=== PATIENT | female | born 1940 | race Caucasian/White ===

== ENCOUNTER → 2016-04-02 | Outpatient (CLI) | payer OTHER, BC ==
[~2016-04-02] MED LIST: ASPCH81X PO; ATEN50TA PO; CALC500C3 PO; CLBPO15 TOP; CLOP1TAB15 PO; DOCU100C31 PO; DRGTP12 TOP; DRGTP75 TD; ESOM20CA PO; FENT100D10 TD; FURO-85 PO; GABA-112 PO; GABA1CAP PO; HYDR2TAB48 PO; ISOS30TA3 PO; LOSA1TAB PO; METO-157 PO; METR0.754 TOP; NAPR1TAB9 PO; NTRGSL/4 UT; OMEP20CA9 PO; ONDA8TAB6 PO; OXYC-57 PO; PANT40TA PO; PROC1TAB5 PO; TAPE50TA5 PO; XLD/500 PO
--- NOTE | 2016-04-02 10:37 | DIAGNOSTIC IMAGING REPORT ---
CT ABD/PELVIS IV AND ORAL CONT CLINICAL HISTORY: Pancreatic carcinoma COMPARISON STUDY: 01/14/2016 TECHNIQUE: Following the IV administration of 119 mL of Optiray-320, CT scan of the abdomen and pelvis was performed from the lung bases to the proximal femurs. Images are reviewed in the axial, sagittal, and coronal planes. IV contrast was administered without complication. CT DOSE: FINDINGS: Lower chest: There is a small left pleural effusion. There are left basilar airspace opacities likely atelectatic. There are coronary artery calcifications. Liver: The contrast-enhanced liver is normal in size, contour, and attenuation. There is no intrahepatic biliary ductal dilatation. The hepatic veins and portal veins are patent. Gallbladder: Cholelithiasis. Spleen: There is borderline splenomegaly (12 cm) there is occlusion of splenic vein. There are perisplenic varices. Pancreas: There is persistent soft tissue encasing the splenic artery and splenic vein. The mass measures approximately 4 cm. The mass appears to arise from the pancreatic body. There is fatty atrophy of the pancreatic head. Adrenal glands: Unremarkable. Kidneys: There is a 12 mm right renal cyst. There are renal calcifications, likely vascular. Bowel: There are no transition zones indicate bowel obstruction. The appendix appears normal. There is no acute diverticulitis. There are postsurgical changes involving the stomach. Peritoneum: There is minimal free pelvic fluid. There is no free air. There is a small fat-containing upper abdominal midline ventral hernia. Vasculature: There is an indwelling IVC filter. There is no evidence of abdominal aortic dilatation. Adenopathy: Upper abdominal mesenteric lymph nodes remain the upper limits of normal in size. Pelvic viscera: There is mild bladder wall thickening. Skeletal structures: There are postsurgical changes present within the spine. There is a grade 2/4 spondylolisthesis of L5 on S1. IMPRESSION: 1. Slight interval decrease in the size of the complex pancreatic body mass which currently measures 4 cm. 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 2. Interval development of a small left pleural effusion 3. No evidence of bowel obstruction. No evidence of free air 4. Cholelithiasis 5. Varices 6. No CT evidence of hepatic metastasis Electronically signed by: Ba Lara M.D. 04/02/2016 10:34 AM
--- NOTE | 2016-04-02 10:37 | DIAGNOSTIC IMAGING REPORT ---
CT OF THE CHEST WITH IV CONTRAST CLINICAL HISTORY: Pancreatic cancer. COMPARISON STUDY: Chest radiograph January 05, 2016. TECHNIQUE: Following IV administration of 119 mL of Optiray-320, helical axial images of the chest were obtained. Images were viewed in the axial, sagittal and coronal planes. IV contrast was administered without complication. CT DOSE: 860.66 mGy.cm FINDINGS: There are median sternotomy wires and findings consistent with bypass grafting. The heart is mildly enlarged. There is extensive coronary artery calcification. There is no pericardial effusion. There is a small hiatal hernia. Post surgical findings involving the stomach are noted. The abdomen and pelvis will be reported separately. A small left pleural effusion is new since CT of January 14, 2016. There is no pneumothorax. A tiny subpleural calcified nodule within left upper lobe is noted. Left lower lobe and lingular opacities favor atelectasis. No suspicious osseous lesions are present. A left subclavian [id number] is in place. There are several subcentimeter thyroid nodules. IMPRESSION: 1. Small left pleural effusion. This pleural effusion is nonspecific. No CT findings to indicate a malignant effusion but attention to this effusion on subsequent studies is recommended. 2. No thoracic lymphadenopathy. 3. No convincing evidence for metastatic disease within the chest. Electronically signed by: Eyal Bautista M.D. 04/02/2016 10:35 AM
== END | disposition home or self-care (01) ==
LOC: C.CTS 09:27
PROVIDERS: ATTEND Nurse Practitioner Family
DX: C25.1 Malignant neoplasm of body of pancreas (principal)

== ENCOUNTER 2016-05-11 09:14 | Emergency (ER) | payer OTHER, BC ==
[~2016-05-11] VITALS: Ht 157.5 cm; Wt 67.0 kg
[~2016-05-11 09:14] MED LIST changes: -CLBPO15 TOP; -DRGTP75 TD; -FENT100D10 TD; -FURO-85 PO; -HYDR2TAB48 PO; -LOSA1TAB PO; -METR0.754 TOP; -NAPR1TAB9 PO; -OMEP20CA9 PO; -OXYC-57 PO; -PROC1TAB5 PO; -XLD/500 PO
[2016-05-11 09:31] VITALS: TEMP 37; Ht 157.5 cm; Wt 67.0 kg
[2016-05-11] MEDS ORDERED: CLBPO15 TOP (09:56)
[2016-05-11] MEDS ORDERED: LOSA1TAB PO (09:56)
[2016-05-11] MEDS ORDERED: METR0.754 TOP (09:56)
[2016-05-11] MEDS ORDERED: FURO-85 PO (09:56)
[2016-05-11] MEDS ORDERED: KETOROLAC TROMETHAMINE 30 MG/ML VIAL IV STA (10:01)
[2016-05-11] MEDS ORDERED: ONDANSETRON INJ 2 MG/ML 2 ML VIAL IV STA (10:01)
[2016-05-11] MEDS ORDERED: SODIUM CHLORIDE 0.9% 1000ML 500 ML IV STA (10:01)
[2016-05-11] MEDS ORDERED: OPTIRAY 320 IV PRN (10:15)
--- NOTE | 2016-05-11 10:23 | EMERGENCY ROOM VISIT NOTE ---
History Report prepared by Jim: Robert Sow Under the Supervision of: Dr. Annalisa Sifuentes M.D. First contact with patient: 09:57 Chief Complaint: ABDOMINAL PAIN Stated Complaint: ABDOMINAL PAIN Nursing Triage Summary: pt here via als from home with upper abd pains. pt currently undergoing chemo for pancreatic cancer. last chemo was saturday. pt also had one emesis in route. pt states since arrival abd pain has been lessening. History of Present Illness The patient is a 75 year old female who presents to the Emergency Room via ALS with complaints of severe but resolved abdominal pain starting this morning. She also complains of nausea and vomiting. She was given nausea medication in route to the Emergency Room with relief. For the past 3 days, she has been having constipation. Her last normal bowel movement was 3 days ago. She had a small amount of bowel movement a few days ago. She reports her symptoms have now improved. She has a history of pancreatic cancer. Her last chemotherapy session was 3 days ago. She also has a history of triple bypass surgery. The patient denies chest pain, shortness of breath, or any other complaints. Source of History: patient Onset: this morning Position: abdomen Symptom Intensity: severe Timing: resolved Associated Symptoms: No SOB, No chest pain Review of Systems See HPI for pertinent positives & negatives. A total of 10 systems reviewed and were otherwise negative. Past Medical & Surgical Medical Problems: (1) Angina pectoris (2) Hypertension (3) Pancreatic cancer Family History No pertinent family history Social History Smoking Status: Never Smoker Housing Status: lives with family Current/Historical Medications Scheduled Aspirin (Aspirin Chewable), 81 MG PO QAM Atenolol (Tenormin), 1 TAB PO QAM Clobetasol Propionate (Clobetasol Propionate), 1 APPLN TOP BID Clopidogrel (Plavix), 75 MG PO DAILY Docusate Sodium (Docusate Sodium), 1 CAP PO BID Esomeprazole Magnesium (Nexium), 20 MG PO QAM Fentanyl (Fentanyl), 1 PATCH TOP Q72H Furosemide (Lasix), 1 TAB PO DIRECTED Gabapentin (Neurontin), 100 MG PO QAM Gabapentin (Neurontin), 200 MG PO QPM Isosorbide Mononitrate Ext Rel (Imdur Ext Rel), 60 MG PO QAM Losartan Potassium (Cozaar), 1 TAB PO HS Metoclopramide (Reglan), 10 MG PO QID Metronidazole (Topical) (Metrocream), 1 APPLN TOP DAILY Nitroglycerin (Nitrostat), 0.4 MG UT PRN Pantoprazole (Protonix), 40 MG PO QAM Scheduled PRN Calcium Carbonate (Tums), 1-2 TAB PO DAILY PRN for PRN Hydromorphone Hcl (Dilaudid), 1-3 TAB PO TID PRN for Pain Ondansetron Hcl (Zofran), 8 MG PO Q8 PRN for Nausea Oxycodone/Acetaminophen 5MG/325MG (Percocet 5MG/325MG), 1-2 TABLETS PO Q4H PRN for Pain Allergies Coded Allergies: Adhesives (Verified Allergy, Unknown, RASH, 05/11/16) Metaxalone (Verified Allergy, Unknown, RASH, 05/11/16) Oxycodone (Verified Allergy, Unknown, RASH, 05/11/16) Tramadol (Verified Allergy, Unknown, RASH, 05/11/16) Morphine (Verified Adverse Reaction, Intermediate, DIFFICULTY URINATING, SEVERE SWELLING, 05/11/16) Physical Exam Vital Signs Date Time Temp Pulse Resp B/P Pulse Ox O2 Delivery O2 Flow Rate FiO2 05/11/16 14:07 63 14 133/56 98 05/11/16 13:30 63 14 133/56 98 Room Air 05/11/16 10:30 56 16 134/53 99 Room Air 05/11/16 09:31 37.0 57 16 152/75 100 Room Air 05/11/16 09:22 63 Physical Exam CONSTITUTIONAL: Mild distress HEENT: No icterus, moist mucous membranes NECK: No meningismus, trachea is midline. CARDIOVASCULAR: Regular rate, normal perfusion RESPIRATORY: Unlabored breathing. Clear to auscultation. GASTROINTESTINAL: Mild epigastric tenderness. GENITOURINARY: No flank tenderness MUSCULOSKELETAL: Full range of motion NEUROLOGIC: No acute gross focal deficits. PSYCHIATRIC: Normal affect SKIN: Normal for ethnicity. Medical Decision & Procedures ER Provider Diagnostic Interpretation: CT results as stated below per my review and radiologist interpretation. CT ABD/PELVIS IV AND ORAL CONT CLINICAL HISTORY: Abdominal pain. Pancreatic carcinoma. COMPARISON STUDY: April 02, 2016 TECHNIQUE: Following the IV administration of 119 mL of Optiray-320, CT scan of the abdomen and pelvis was performed from the lung bases to the proximal femurs. Images are reviewed in the axial, sagittal, and coronal planes. IV contrast was administered without complication. CT DOSE: 386.30 mGy.cm FINDINGS: Lower chest: There are coronary artery calcifications. There is interval decrease in the size of a left pleural effusion. There is a small hiatal hernia. Liver: The contrast-enhanced liver is normal in size, contour, and attenuation. There is no intrahepatic biliary ductal dilatation. The hepatic veins and portal veins are patent. Gallbladder: There are several gallstones. Spleen: Normal in size and attenuation. Pancreas: There is an ill-defined mass involving the pancreatic body measuring 4.5 cm. There is occlusion of the splenic vein. There are perigastric collaterals. Adrenal glands: Unremarkable. Kidneys: There are renal calcifications, likely vascular. There is a 12 mm right renal cyst. Bowel: There are no transition zones indicate bowel obstruction. The appendix appears normal area there is no acute diverticulitis. There is borderline sigmoid wall thickening. Peritoneum: There is no intraperitoneal free air or abdominal ascites. Vasculature: There is residual a IVC filter present. Adenopathy: None. Pelvic viscera: The bladder, and pelvic viscera are unremarkable. Skeletal structures: Postsurgical changes are present within the lumbar spine IMPRESSION: 1. Persistent complex pancreatic body mass, similar in size the preceding study with celiac artery, and splenic artery encasement. There is encasement and occlusion of splenic vein with secondary collateral vessels and varices. 2. No evidence of bowel obstruction. No evidence of free air 3. Interval decrease in the size of left pleural effusion 4. Small hiatal hernia 5. Borderline sigmoid colon wall thickening 6. Normal appendix Electronically signed by: Ba Lara M.D. 05/11/2016 1:08 PM Dictated Date/Time: 05/11/2016 1:00 PM Laboratory Results 05/11/16 10:20 Red Blood Count 3.38, Mean Corpuscular Volume 87.9, Mean Corpuscular Hemoglobin 28.1, Mean Corpuscular Hemoglobin Concent 32.0, Mean Platelet Volume 10.8, Neutrophils (%) (Auto) 91.3, Lymphocytes (%) (Auto) 6.7, Monocytes (%) (Auto) 0.2, Eosinophils (%) (Auto) 1.6, Basophils (%) (Auto) 0.0, Neutrophils # (Auto) 8.42, Lymphocytes # (Auto) 0.62, Monocytes # (Auto) 0.02, Eosinophils # (Auto) 0.15, Basophils # (Auto) 0.00 05/11/16 10:20 Test 05/11/16 10:20 White Blood Count 9.23 K/uL (4.8-10.8) Red Blood Count 3.38 M/uL (4.2-5.4) Hemoglobin 9.5 g/dL (12.0-16.0) Hematocrit 29.7 % (37-47) Mean Corpuscular Volume 87.9 fL (80-100) Mean Corpuscular Hemoglobin 28.1 pg (25-34) Mean Corpuscular Hemoglobin Concent 32.0 g/dl (32-36) Platelet Count 78 K/uL (130-400) Mean Platelet Volume 10.8 fL (7.4-10.4) Neutrophils (%) (Auto) 91.3 % Lymphocytes (%) (Auto) 6.7 % Monocytes (%) (Auto) 0.2 % Eosinophils (%) (Auto) 1.6 % Basophils (%) (Auto) 0.0 % Neutrophils # (Auto) 8.42 K/uL (1.4-6.5) Lymphocytes # (Auto) 0.62 K/uL (1.2-3.4) Monocytes # (Auto) 0.02 K/uL (0.11-0.59) Eosinophils # (Auto) 0.15 K/uL (0-0.5) Basophils # (Auto) 0.00 K/uL (0-0.2) RDW Standard Deviation 50.7 fL (36.4-46.3) RDW Coefficient of Variation 15.8 % (11.5-14.5) Immature Granulocyte % (Auto) 0.2 % Immature Granulocyte # (Auto) 0.02 K/uL (0.00-0.02) Hyposegmented Neutrophils 2+ Toxic Granulation 1+ Platelet Estimate DECREASED Anion Gap 8.0 mmol/L (3-11) Est Creatinine Clear Calc Drug Dose 51.8 ml/min Estimated GFR () 79.4 Estimated GFR (Non- 68.5 BUN/Creatinine Ratio 30.0 (10-20) Calcium Level 8.1 mg/dl (8.5-10.1) Total Bilirubin 0.3 mg/dl (0.2-1) Direct Bilirubin 0.1 mg/dl (0-0.2) Aspartate Amino Transf (AST/SGOT) 46 U/L (15-37) Alanine Aminotransferase (ALT/SGPT) 43 U/L (12-78) Alkaline Phosphatase 66 U/L (45-117) Troponin I < 0.015 ng/ml (0-0.045) Total Protein 6.1 gm/dl (6.4-8.2) Albumin 3.1 gm/dl (3.4-5.0) Lipase 473 U/L (73-393) Labs reviewed by ED physician. Medications Administered Medications (Trade) Dose Ordered Sig/Serina Route Start Time Stop Time Status Last Admin Dose Admin Sodium Chloride (Nss 1000ml) 500 ml @ 0 mls/hr Q0M STAT IV 05/11/16 10:01 05/11/16 10:04 DC 05/11/16 10:17 0 MLS/HR Ondansetron HCl (Zofran Inj) 4 mg NOW STAT IV 05/11/16 10:01 05/11/16 10:04 DC 05/11/16 10:17 4 MG Ketorolac Tromethamine (Toradol Inj) 15 mg NOW STAT IV 05/11/16 10:01 05/11/16 10:04 DC 05/11/16 10:17 15 MG Heparin Sodium (Porcine) (Heparin 100 Unit/ml 5ml Flush) 5 ml STK-MED ONCE .ROUTE 05/11/16 14:00 05/11/16 14:03 DC 05/11/16 14:06 5 ML ECG Indication: abdominal pain Rate (beats per minute): 64 Rhythm: normal sinus Findings: nonspecific-ST abn, no ectopy ED Course 0957: Past medical records reviewed. The patient was evaluated in room B05. A complete history and physical examination was performed. 1001: Toradol Inj 15 mg IV, Zofran Inj 4 mg IV, Sodium Chloride 500 ml @ 0 mls/ hr Wide Open IV 1350: Upon reexamination the patient is resting comfortably. I discussed results and treatment plan with the patient. She verbalizes agreement and understanding. The patient is ready for discharge. 1400: Heparin Sodium (Porcine) 5 ml IV Medical Decision Differential diagnosis includes but is not limited to complications of pancreatic cancer. 75-year-old with known pancreatic cancer on chemotherapy presents to emergency room for moderate epigastric discomfort and nausea prior to arrival although now resolved. She states she receives her care from the [facility] and is already scheduled for a repeat CT scan to assess tumor size in several days. We discussed the pros and cons of ED evaluation and patient request a CT scan here today which subsequently showed pancreatic tumor similar in size to previous. She appeared well at the time of discharge and had no further questions and understands to follow-up with her oncologist. She notes she already has medication for nausea and her fentanyl patch is not adequately relieving her pain at times. I therefore wrote her Dilaudid PRN in the context of a Percocet allergy: Brock. Impression Primary Impression: Pancreatic cancer Scribe Attestation The scribe's documentation has been prepared under my direction and personally reviewed by me in its entirety. I confirm that the note above accurately reflects all work, treatment, procedures, and medical decision making performed by me. Departure Information Dispostion Home / Self-Care Prescriptions Hydromorphone Hcl (DILAUDID) 2 Mg Tab 1-3 TAB PO TID Y for Pain, #24 TAB Prov: Annalisa Sifuentes MD 05/11/16 Oxycodone/Acetaminophen 5MG/325MG (PERCOCET 5MG/325MG) Tab 1-2 TABLETS PO Q4H Y for Pain, #20 TAB Prov: Annalisa Sifuentes MD 05/11/16 Referrals RV. Matute MD (PCP) Forms HOME CARE DOCUMENTATION FORM, IMPORTANT VISIT INFORMATION Patient Instructions My [facility]
[2016-05-11 10:34] LABS: HEMATOCRIT 29.7 % (37-47); MEAN CELL VOLUME 87.9 fL (80-100); MEAN CORPUSCULAR HEMOGLOBIN 28.1 pg (25-34); RED BLOOD COUNT 3.38 M/uL (4.2-5.4); WHITE BLOOD COUNT 9.23 K/uL (4.8-10.8)
[2016-05-11 10:49] LABS: ALT/SGPT 43 U/L (12-78); AST/SGOT 46 U/L (15-37); BLOOD UREA NITROGEN 25 mg/dl (7-18); CALCIUM 8.1 mg/dl (8.5-10.1); CARBON DIOXIDE 24 mmol/L (21-32); CHLORIDE 110 mmol/L (98-107); CREATININE 0.83 mg/dl (0.60-1.20); GLUCOSE 110 mg/dl (70-99); SODIUM 142 mmol/L (136-145)
[2016-05-11 10:54] LABS: ALKALINE PHOSPHATASE 66 U/L (45-117)
[2016-05-11 11:01] LABS: MEAN PLATELET VOLUME 10.8 fL (7.4-10.4); PLATELET COUNT 78 K/uL (130-400)
[2016-05-11 11:02] LABS: COMPLETE YES; EOS % 1.6 %; HYPOSEGMENTED POLYS 2+; IG% 0.2 %; LYMPH % 6.7 %; LYMPH ABS # 0.62 K/uL (1.2-3.4); MONO % 0.2 %; NEUT % 91.3 %; PLT ESTIMATE DECREASED; TOXIC GRANULATION 1+
--- NOTE | 2016-05-11 13:09 | DIAGNOSTIC IMAGING REPORT ---
CT ABD/PELVIS IV AND ORAL CONT CLINICAL HISTORY: Abdominal pain. Pancreatic carcinoma. COMPARISON STUDY: April 02, 2016 TECHNIQUE: Following the IV administration of 119 mL of Optiray-320, CT scan of the abdomen and pelvis was performed from the lung bases to the proximal femurs. Images are reviewed in the axial, sagittal, and coronal planes. IV contrast was administered without complication. CT DOSE: 386.30 mGy.cm FINDINGS: Lower chest: There are coronary artery calcifications. There is interval decrease in the size of a left pleural effusion. There is a small hiatal hernia. Liver: The contrast-enhanced liver is normal in size, contour, and attenuation. There is no intrahepatic biliary ductal dilatation. The hepatic veins and portal veins are patent. Gallbladder: There are several gallstones. Spleen: Normal in size and attenuation. Pancreas: There is an ill-defined mass involving the pancreatic body measuring 4.5 cm. There is occlusion of the splenic vein. There are perigastric collaterals. Adrenal glands: Unremarkable. Kidneys: There are renal calcifications, likely vascular. There is a 12 mm right renal cyst. Bowel: There are no transition zones indicate bowel obstruction. The appendix appears normal area there is no acute diverticulitis. There is borderline sigmoid wall thickening. Peritoneum: There is no intraperitoneal free air or abdominal ascites. Vasculature: There is residual a IVC filter present. Adenopathy: None. Pelvic viscera: The bladder, and pelvic viscera are unremarkable. Skeletal structures: Postsurgical changes are present within the lumbar spine IMPRESSION: 1. Persistent complex pancreatic body mass, similar in size the preceding study with celiac artery, and splenic artery encasement. There is encasement and occlusion of splenic vein with secondary collateral vessels and varices. 2. No evidence of bowel obstruction. No evidence of free air 3. Interval decrease in the size of left pleural effusion 4. Small hiatal hernia 5. Borderline sigmoid colon wall thickening 6. Normal appendix Electronically signed by: Ba Lara M.D. 05/11/2016 1:08 PM Dictated Date/Time: 05/11/2016 1:00 PM
[2016-05-11] MEDS ORDERED: OXYC-57 PO (13:53)
[2016-05-11] MEDS ORDERED: HYDR2TAB48 PO (13:53)
[2016-05-11 14:07] VITALS: BP 133/56; PULSE 63; O2SAT 98
[2016-08-24] MEDS ORDERED: NAPR1TAB9 PO (10:16)
[2016-08-24] MEDS ORDERED: PROC1TAB5 PO (10:16)
[2016-08-24] MEDS ORDERED: DRGTP75 TD (10:16)
[2016-09-17] MEDS ORDERED: HYDR2TAB48 PO (13:44)
[2016-09-24] MEDS ORDERED: FENT100D10 TD (14:20)
[2016-10-09] MEDS ORDERED: XLD/500 PO (14:00)
[2016-11-30] MEDS ORDERED: HYDR2TAB48 PO (08:55)
== END 2016-05-11 14:08 | disposition home or self-care (01) ==
LOC: EDBD 09:14 → C.EDB 09:15
DX: C25.9 Malignant neoplasm of pancreas, unspecified (principal); I10 Essential (primary) hypertension; Z95.1 Presence of aortocoronary bypass graft; Z79.82 Long term (current) use of aspirin; Z79.899 Other long term (current) drug therapy; Z88.5 Allergy status to narcotic agent; Z88.8 Allergy status to other drugs, medicaments and biological substances; Z91.09 Other allergy status, other than to drugs and biological substances

== ENCOUNTER → 2016-07-02 | Outpatient (CLI) | payer OTHER, BC ==
[~2016-07-02] MED LIST changes: +CLBPO15 TOP; +DRGTP75 TD; +FENT100D10 TD; +FURO-85 PO; +HYDR2TAB48 PO; +LOSA1TAB PO; +METR0.754 TOP; +NAPR1TAB9 PO; +OMEP20CA9 PO; +OPTIRAY 320 IV PRN; +OXYC-57 PO; +PROC1TAB5 PO; -TAPE50TA5 PO; +XLD/500 PO
--- NOTE | 2016-07-02 15:28 | DIAGNOSTIC IMAGING REPORT ---
ABDOMEN AND PELVIS CT WITH IV AND ORAL CONTRAST CT DOSE: HISTORY: Pancreatic carcinoma neoplasm TECHNIQUE: Multiaxial CT images of the abdomen and pelvis were performed following the use of intravenous and oral contrast. COMPARISON STUDY: 05/11/2016 FINDINGS: Mild decrease in volume of a pancreatic mass. Encasement of the celiac axis as well as several surrounding nodes on a regional bases persist. Overall extent, however appears at least slightly diminished. Lung bases remain clear. There is no basilar pulmonary nodularity. Liver remains uniform in overall enhancement characteristics. Hepatic and portal venous structures remain patent. Several small gallstones remain within the gallbladder lumen. Splenic vein remains occluded. Kidneys remain negative for hydronephrosis. Bowel pattern remains nonobstructive. Several small mesenteric nodes are present and remains unchanged from the prior study. Structures the pelvis appear unremarkable. Bladder remains midline. There is no pelvic or inguinal adenopathy of significance. IMPRESSION: Stable to perhaps slightly improved exam compared to the prior study. 2. The encased seen and or infiltrative poorly defined pancreatic mass is slightly diminished in prominence. 3. All remaining components of the study are stable with no new or interval process. Electronically signed by: Dewayne Brink M.D. 07/02/2016 3:26 PM Dictated Date/Time: 07/02/2016 3:17 PM
--- NOTE | 2016-07-02 15:56 | DIAGNOSTIC IMAGING REPORT ---
CHEST CT WITH CONTRAST CT DOSE: 805.97 mGycm HISTORY: Pancreatic cancer. Assess for metastatic disease. TECHNIQUE: Multiaxial CT images of the chest were performed following the intravenous administration of contrast. COMPARISON: Chest CT 04/02/2016. FINDINGS: The central airways are patent. No pneumothorax. No suspicious pulmonary nodules to suggest metastatic disease. Linear densities within the right middle lobe and lingula remain unchanged. Trace left pleural effusion has improved. No suspicious lytic or blastic osseous lesions. Poststernotomy changes. Cervical spinal fusion hardware. Subcentimeter thyroid nodules. Left Port-A-Cath terminates in the distal SVC. Small hiatus hernia, unchanged. Mild thickening of the distal esophagus. Mild asymmetric enlargement and slightly edematous appearance to the left breast persist. No mediastinal or hilar lymphadenopathy. Ill-defined pancreatic mass is better appreciated on the same day abdomen and pelvis CT. IMPRESSION: 1. Interval improvement in the trace left pleural effusion. 2. No evidence for metastatic disease within the chest. 3. Mild asymmetric enlargement and mild edematous change within the left breast. This remains unchanged. Correlation with mammogram should be considered for further evaluation. This could be due to delayed venous drainage within the left chest due to the indwelling left-sided Port-A-Cath. 4. Ill-defined pancreatic mass is better appreciated on the same day abdomen and pelvis CT. Electronically signed by: Rudy Au M.D. 07/02/2016 3:55 PM Dictated Date/Time: 07/02/2016 3:44 PM
== END | disposition home or self-care (01) ==
LOC: C.CTS 14:31
PROVIDERS: ATTEND Nurse Practitioner Family
DX: C25.1 Malignant neoplasm of body of pancreas (principal)

== ENCOUNTER → 2016-10-05 | Outpatient (CLI) | payer OTHER, BC ==
[~2016-10-05] MED LIST changes: -ASPCH81X PO; -DRGTP12 TOP; -DRGTP75 TD; -OPTIRAY 320 IV PRN; -OXYC-57 PO; -PANT40TA PO
--- NOTE | 2016-10-05 12:25 | MAMMOGRAPHY REPORT ---
UNILATERAL LEFT DIGITAL DIAGNOSTIC MAMMOGRAM AND TARGETED LEFT ULTRASOUND: 10/05/2016 CLINICAL HISTORY: Mild trabecular thickening noted within the left breast during diagnostic mammogram , for which ultrasound was recommended. The patient is currently undergoing chemoradiation for pancre atic cancer. She denies any erythema of the left breast, palpable lump, or other complaints. TECHNIQUE: Left CC and MLO views were obtained. COMPARISON: Comparison is made to exam dated: 08/20/2016 mammogram - [facility]. BREAST COMPOSITION: There are scattered areas of fibroglandular density in the left breast. FINDINGS: Repeat mammograms were performed as the last mammograms were performed on 08/20/2016. The p reviously seen diffuse trabecular thickening of the left breast is slightly decreased compared to the 08/20/2016 exam. No left breast skin thickening is evident. The remainder of the left breast is sta ble mammographically, without suspicious masses, calcifications, or areas of architectural distortion noted. Targeted ultrasound was performed of the left breast including all 4 quadrants. No suspicious masses or other suspicious sonographic abnormalities are evident. No obvious skin thickening is evident. On clinical exam, there is no erythema or peau d'orange of the left breast. IMPRESSION: ACR BI-RADS CATEGORY 2: BENIGN, TARGETED ULTRASOUND ACR BI-RADS CATEGORY 2: BENIGN Slight interval decrease in diffuse left breast trabecular thickening compared to the 08/20/2016 exam. No skin thickening or other suspicious sonographic abnormality is noted within the left breast on u ltrasound. The mild trabecular edema is likely related to altered venous drainage from her indwellin g port catheter. Recommend clinical follow-up. There is no mammographic or targeted sonographic evidence of malignancy. Return to annual mammogram s creening schedule is recommended. The patient has been verbally notified of the results. Approximately 10% of breast cancers are not detected with mammography. A negative mammographic report should not delay biopsy if a clinically suggestive mass is present. Arleen Velásquez M.D. /:10/05/2016 09:05:15 Manager Supply Chain: Oxana ALMONTE(Mendy)(M), [facility] letter sent: Normal 1/2 BI-RADS Code: ACR BI-RADS Category 2: Benign Ultrasound BI-RADS: ACR BI-RADS Category 2: Benign
== END | disposition home or self-care (01) ==
LOC: C.MAMM 08:14
PROVIDERS: ATTEND Nurse Practitioner Family
DX: R92.8 Other abnormal and inconclusive findings on diagnostic imaging of breast (principal); N64.89 Other specified disorders of breast; C25.1 Malignant neoplasm of body of pancreas

== ENCOUNTER → 2016-11-19 | Outpatient (CLI) | payer OTHER, BC ==
[~2016-11-19] MED LIST changes: -DOCU100C31 PO; +OPTIRAY 320 IV PRN
--- NOTE | 2016-11-19 10:46 | DIAGNOSTIC IMAGING REPORT ---
ABD/PELVIS IV AND ORAL CONT CLINICAL HISTORY: 76 years-old Female presenting with PANCREATIC CA. TECHNIQUE: Multidetector CT of the abdomen and pelvis was performed after the administration of oral and intravenous contrast. IV contrast: 118 mL of Optiray 320. A dose lowering technique was used consistent with the principles of ALARA (as low as reasonably achievable). COMPARISON: 07/02/2016. CT DOSE (mGy.cm): The estimated cumulative dose is 453.91 inclusive of the chest CT. FINDINGS: Cardiac Cath Lab Manager topogram: Median sternotomy wires and epigastric surgical clips noted. Lung bases: Minimal dependent groundglass opacities at the left lung base, likely atelectasis. Normal heart size. Aortic valve and coronary artery calcification. The tip of the left subclavian Mediport terminates in the superior cavoatrial junction. No pericardial or pleural effusion. Liver: Normal morphology. No liver lesion. Patent hepatic vasculature. Biliary: Mild intrahepatic and extrahepatic biliary ductal dilatation is similar to prior. Mild gallbladder distention with gallstones noted at the gallbladder neck, similar to prior and likely physiologic. Pancreas: Infiltrative pancreatic mass centered at the pancreatic neck and body encases the proximal splenic vessels, centrally at axis, and portal venous confluence. Resultant severe narrowing of the portal venous confluence may be slightly more severe than on prior exam. Infiltrative soft tissue also approaches the posterior aspect of the stomach. Overall size of the mass is greater than on prior exam. Interval development of a gas and fluid containing collection in the lesser sac that is inseparable from the superior margin of the pancreatic mass and gastric wall. No oral contrast is noted within this collection. This collection measures 2.4 x 1.3 cm (series 6 image 93). Spleen: Top normal in size. The splenic vein is occluded at the level of the pancreatic mass. Prominent perisplenic short gastric collateral vessels.. Adrenal glands: The left adrenal gland is abutted by the infiltrative pancreatic mass. Right adrenal gland normal. Kidneys and ureters: Nonobstructing right renal calculi measuring up to 2 to 3 mm. Additional renal vascular calcification. No hydronephrosis. Few small hypodensities in the kidneys to small to characterize but likely cysts. Distal ureters poorly visualized. Proximal ureters normal. Bladder: Incompletely evaluated secondary to underdistention. However, apparent bladder wall thickening along the bladder dome and right aspect anteriorly as on prior exam. Pelvic organs: Uterus and ovaries normal. Bowel: Ill-defined posterior wall of the stomach. The duodenum does not appear to be directly invaded by the pancreatic mass. No bowel obstruction. No extraluminal oral contrast noted. Peritoneal cavity: Trace free fluid in the pelvis. Vasculature: Atherosclerosis of the normal caliber abdominal aorta. IVC patent. An IVC filter terminates above the level of the renal veins. Right pelvic varices noted. Left gonadal vein patent and not significantly dilated. Lymph nodes: No gross lymphadenopathy, although given the infiltrative nature of the pancreatic mass, regional lymph nodes may not be well delineated. Abdominal wall: Postsurgical changes of the midline abdominal wall. No focal fluid collection. Musculoskeletal: Degenerative changes of the spine. Laminectomy defects at L4-5. Degenerative changes of the sacroiliac joints, right greater than left. IMPRESSION: 1. Apparent interval increase in extent of the infiltrative pancreatic mass at the neck body junction. Greater resultant stenosis of the portal venous confluence. 2. Interval development of a gas and fluid collection along the posterior aspect of the stomach, which is inseparable from the superior margin of the mass. This does not contain oral contrast, however, the presence of gas is suspicious for fistulous connection with the stomach. Endoscopy could be considered as clinically warranted. 3. 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 4. Although the bladder is incompletely distended, apparent irregular wall thickening raises concern for a neoplastic process. Consideration for urologic consult and possible cystoscopy. 5. Nonobstructing right renal calculi. Electronically signed by: Silvestre Apodaca M.D. 11/19/2016 10:45 AM Dictated Date/Time: 11/19/2016 10:28 AM
--- NOTE | 2016-11-19 10:54 | DIAGNOSTIC IMAGING REPORT ---
(CHEST) THORAX WITH HISTORY: 76 years-old Female history of pancreatic cancer with therapy. This is a follow-up exam. COMPARISON: CT chest 07/29/2016 TECHNIQUE: Multiple axial CT images of the chest were obtained following the intravenous administration of 118 mL Optiray 320. A dose lowering technique was used consistent with the principals of NAHEED. FINDINGS: 6 mm low attenuating right thyroid nodule is seen, nonspecific. No pathologic adenopathy about the chest is identified. Left pectoral Dabdzv-f-Gepe catheter is again seen with distal tip right atrium. There is improved edema about the left breast. 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 Aortic annulus calcifications are noted. Moderate atherosclerotic plaquing involves the thoracic aorta. There is plaquing at the origin of the celiac trunk which appears to cause at least 50% stenosis. The opacified pulmonary arterial tree appears to be within normal limits. There is no pneumothorax, pleural effusion or focal airspace consolidation. No suspicious pulmonary masses or nodules are identified to suggest metastatic disease. There is minimal dependent subsegmental bibasilar atelectasis. Minimal subsegmental pleural parenchymal scarring involves the inferior segment lingula. The central airways are patent. Layering gallstones are seen within the gallbladder lumen. A well-defined mass of the pancreas is better evaluated on comparison CT abdomen of same day. Infrarenal IVC filter is noted. Partially imaged fusion hardware of the cervical spine is noted. There are postsurgical changes of the right humeral head. There are degenerative changes of the bilateral shoulders. No suspicious lytic or blastic bony lesions are identified. IMPRESSION: 1. No acute intrathoracic abnormality. No evidence of metastatic disease within the chest. 2. No pathologic adenopathy. 3. Decreased amount of soft tissue edema involves the left breast. 4. Ill-defined pancreatic mass is better evaluated on comparison CT of the abdomen and pelvis of same day. 5. Cholelithiasis. The above report was generated using voice recognition software. It may contain grammatical, syntax or spelling errors. Electronically signed by: Mendoza Brumfield M.D. 11/19/2016 10:53 AM Dictated Date/Time: 11/19/2016 10:41 AM
== END | disposition home or self-care (01) ==
LOC: C.CTS 07:52
PROVIDERS: ATTEND Nurse Practitioner Family
DX: C25.1 Malignant neoplasm of body of pancreas (principal)

== ENCOUNTER 2016-11-26 00:14 | Inpatient (IN) | payer OTHER, BC ==
[~2016-11-26] VITALS: Ht 152.4 cm; Wt 58.2 kg
[2016-11-26] VITALS (13 sets, daily range): BP systolic 91–181; BP diastolic 49–78; PULSE 51–73; TEMP 36.4–37.6; O2SAT 92–96; Ht 152.4 cm; Wt 58.2 kg
[~2016-11-26 00:14] MED LIST changes: -OMEP20CA9 PO; -OPTIRAY 320 IV PRN
[2016-11-26] MEDS ORDERED: OMEP20CA9 PO (00:45)
--- NOTE | 2016-11-26 00:53 | EMERGENCY ROOM VISIT NOTE ---
History Report prepared by Jim: Eulogio Oliver Under the Supervision of: Dr. Andria Burk D.O. First contact with patient: 00:25 Chief Complaint: WEAKNESS Stated Complaint: FALL Nursing Triage Summary: 3 day history of weakness, resulting in ground level fall this date. History of Present Illness The patient is a 76 year old female who presents to the Emergency Room with complaints of weakness that began 2 days ago. At this time, the patient noticed that she was having difficulty walking and standing up. She was "wobbly" with walking and experienced a fall. She fell on a carpeted surface onto her face and called EMS. She was also experiencing extremity "jerking" or spasms intermittently since this time as well where she would frequently drop objects. This has never happened to her before. She has a current medical history of pancreatic cancer. Her last radiation and chemotherapy procedure was 1 week to hold his mouth ago. She also had an open heart surgery a couple of month ago. She denies any other symptoms at this time. Source of History: patient Onset: 2 days ago Position: other (global) Symptom Intensity: moderate Quality: other (Weakness) Timing: constant Associated Symptoms: No LOC Note: She is having intermittent muscle spasms in her extremities. She denies any other symptoms at this time. Review of Systems See HPI for pertinent positives & negatives. A total of 10 systems reviewed and were otherwise negative. Past Medical & Surgical Medical Problems: (1) Angina pectoris (2) Hypertension Family History No pertinent family history Social History Smoking Status: Never Smoker Smokeless Tobacco Use: No Drug Use: none Marital Status: single Housing Status: lives with family Occupation Status: retired Current/Historical Medications Scheduled Atenolol (Tenormin), 1 TAB PO QAM Capecitabine (Xeloda), 500 MG PO Q12H Clopidogrel (Plavix), 75 MG PO DAILY Esomeprazole Magnesium (Nexium), 40 MG PO QAM Furosemide (Lasix), 1 TAB PO DIRECTED Gabapentin (Neurontin), 100 MG PO QAM Gabapentin (Neurontin), 200 MG PO QPM Isosorbide Mononitrate Ext Rel (Imdur Ext Rel), 60 MG PO QAM Losartan Potassium (Cozaar), 1 TAB PO HS Metoclopramide (Reglan), 10 MG PO QID Metronidazole (Topical) (Metrocream), 1 APPLN TOP DAILY Omeprazole (Prilosec), 20 MG PO DAILY Scheduled PRN Fentanyl (Duragesic), 100 MCG TD [id number] PRN for Pain Hydromorphone Hcl (Dilaudid), 1 TAB PO QID PRN for Pain Naproxen (Aleve), 220 MG PO BID PRN for Pain Nitroglycerin (Nitrostat), 0.4 MG UT UD PRN for Chest Pain Ondansetron Hcl (Zofran), 8 MG PO Q8 PRN for Nausea Prochlorperazine Maleate (Compazine), 10 MG PO Q6H PRN for Nausea or Vomiting Allergies Coded Allergies: Adhesives (Verified Allergy, Unknown, RASH, 11/26/16) Metaxalone (Verified Allergy, Unknown, RASH, 11/26/16) Oxycodone (Verified Allergy, Unknown, RASH, 11/26/16) Tramadol (Verified Allergy, Unknown, RASH, 11/26/16) Morphine (Verified Adverse Reaction, Intermediate, DIFFICULTY URINATING, SEVERE SWELLING, 11/26/16) Physical Exam Vital Signs Date Time Temp Pulse Resp B/P (MAP) Pulse Ox O2 Delivery O2 Flow Rate FiO2 11/26/16 02:37 135/58 11/26/16 02:34 58 16 96 11/26/16 02:19 59 15 97 11/26/16 02:14 58 15 96 11/26/16 01:44 60 13 97 11/26/16 01:15 139/79 11/26/16 01:15 60 16 139/79 99 Room Air 11/26/16 00:44 65 23 100 11/26/16 00:29 70 11/26/16 00:24 95 Room Air 11/26/16 00:24 36.6 67 22 142/65 95 Room Air 11/26/16 00:22 142/65 Physical Exam HEENT: Head - normocephalic. Obvious hematoma about the right lateral eye. Pupils are equal, round, and reactive to light. Extraocular eye muscles are intact. Sclera are icteric. Ears - bilaterally patent canals with noninjected tympanic membranes and no evidence of hemotympanum. Nose - moist nasal mucosa without discharge. Mouth - moist buccal mucosa. Oropharynx is nonerythematous and there is no tonsillar exudate or edema noted. Neck: Supple; no JVD, nuchal rigidity, cervical lymphadenopathy, or auscultated bruits. Heart: Regular rate and rhythm. There is a normal S1 and S2 with no murmurs, clicks, or gallops appreciated. Lungs: Clear to auscultation bilaterally with no wheezes, rales, or rhonchi. Abdomen: Soft, completely nontender, nondistended, with good bowel sounds. There are no palpable pulsatile masses or hepatosplenomegaly. There is no guarding, rigidity, or rebound noted. Extremities: No evidence of cyanosis, clubbing, or edema. There are easily palpable peripheral pulses. Skin: Pale and dry. No rashes. Neuro:The patient is awake and alert, oriented to day, time, and place. Muscle strength is 5/5 in all 4 extremities. The patient has equal territory development manager strength and equal pedal push and pull. There are no cerebellar signs. Medical Decision & Procedures ER Provider Diagnostic Interpretation: Radiology results as stated below per my review and the radiologist's interpretation: CT HEAD: No acute intracranial abnormality. No ICH, mass effect or edema. Cortical atrophy and white matter changes most consistent with chronic small vessel disease. Radiologist: Juan Carlos Oneill MD CT FACIAL: No acute facial fracture. Right maxillary soft tissue edema. No air-fluid levels in the paranasal sinuses. Radiologist: Juan Carlos Oneill MD Laboratory Results 11/26/16 00:54 Red Blood Count 2.86, Mean Corpuscular Volume 85.7, Mean Corpuscular Hemoglobin 27.3, Mean Corpuscular Hemoglobin Concent 31.8, Mean Platelet Volume 10.4, Neutrophils (%) (Auto) 74.1, Lymphocytes (%) (Auto) 13.3, Monocytes (%) (Auto) 12.0, Eosinophils (%) (Auto) 0.4, Basophils (%) (Auto) 0.0, Neutrophils # (Auto ) 3.63, Lymphocytes # (Auto) 0.65, Monocytes # (Auto) 0.59, Eosinophils # (Auto ) 0.02, Basophils # (Auto) 0.00 11/26/16 00:54 Test 11/26/16 00:54 11/26/16 01:55 White Blood Count 4.90 K/uL (4.8-10.8) Red Blood Count 2.86 M/uL (4.2-5.4) Hemoglobin 7.8 g/dL (12.0-16.0) Hematocrit 24.5 % (37-47) Mean Corpuscular Volume 85.7 fL (80-100) Mean Corpuscular Hemoglobin 27.3 pg (25-34) Mean Corpuscular Hemoglobin Concent 31.8 g/dl (32-36) Platelet Count 115 K/uL (130-400) Mean Platelet Volume 10.4 fL (7.4-10.4) Neutrophils (%) (Auto) 74.1 % Lymphocytes (%) (Auto) 13.3 % Monocytes (%) (Auto) 12.0 % Eosinophils (%) (Auto) 0.4 % Basophils (%) (Auto) 0.0 % Neutrophils # (Auto) 3.63 K/uL (1.4-6.5) Lymphocytes # (Auto) 0.65 K/uL (1.2-3.4) Monocytes # (Auto) 0.59 K/uL (0.11-0.59) Eosinophils # (Auto) 0.02 K/uL (0-0.5) Basophils # (Auto) 0.00 K/uL (0-0.2) RDW Standard Deviation 61.9 fL (36.4-46.3) RDW Coefficient of Variation 19.5 % (11.5-14.5) Immature Granulocyte % (Auto) 0.2 % Immature Granulocyte # (Auto) 0.01 K/uL (0.00-0.02) Red Blood Cell Morphology Unremarkable Prothrombin Time 11.3 SECONDS (9.0-12.0) Prothromb Time International Ratio 1.1 (0.9-1.1) Activated Partial Thromboplast Time 36.8 SECONDS (21.0-31.0) Partial Thromboplastin Ratio 1.4 Anion Gap 9.0 mmol/L (3-11) Est Creatinine Clear Calc Drug Dose 23.7 ml/min Estimated GFR () 38.5 Estimated GFR (Non- 33.3 BUN/Creatinine Ratio 22.7 (10-20) Calcium Level 8.8 mg/dl (8.5-10.1) Total Bilirubin 0.3 mg/dl (0.2-1) Direct Bilirubin < 0.1 mg/dl (0-0.2) Aspartate Amino Transf (AST/SGOT) 12 U/L (15-37) Alanine Aminotransferase (ALT/SGPT) 9 U/L (12-78) Alkaline Phosphatase 86 U/L (45-117) Total Creatine Kinase 97 U/L (26-192) Creatine Kinase MB 0.7 ng/ml (0.5-3.6) Creatine Kinase MB Ratio 0.7 (0-3.0) Troponin I < 0.015 ng/ml (0-0.045) Total Protein 6.3 gm/dl (6.4-8.2) Albumin 2.4 gm/dl (3.4-5.0) Thyroid Stimulating Hormone (TSH) 1.980 uIu/ml (0.300-4.500) Urine Color YELLOW Urine Appearance CLEAR (CLEAR) Urine pH 5.0 (4.5-7.5) Urine Specific Andrews 1.020 (1.000-1.030) Urine Protein NEG (NEG) Urine Glucose (UA) NEG (NEG) Urine Ketones NEG (NEG) Urine Occult Blood NEG (NEG) Urine Nitrite NEG (NEG) Urine Bilirubin NEG (NEG) Urine Urobilinogen NEG (NEG) Urine Leukocyte Esterase NEG (NEG) Urine WBC (Auto) 1-5 /hpf (0-5) Urine RBC (Auto) 0-4 /hpf (0-4) Urine Hyaline Casts (Auto) 1-5 /lpf (0-5) Urine Epithelial Cells (Auto) >30 /lpf (0-5) Urine Bacteria (Auto) NEG (NEG) Laboratory results per my review. Medications Administered Medications (Trade) Dose Ordered Sig/Serina Route Start Time Stop Time Status Last Admin Dose Admin Sodium Chloride 500 ml @ 999 mls/hr Q31M STAT IV 11/26/16 02:19 11/26/16 02:49 DC 11/26/16 02:19 999 MLS/HR Sodium Chloride 1,000 ml @ 200 mls/hr Q5H STAT IV 11/26/16 02:19 11/26/16 04:52 DC 11/26/16 03:04 200 MLS/HR Hydromorphone HCl (Dilaudid Inj) 0.5 mg NOW STAT IV 11/26/16 03:31 11/26/16 03:44 DC 11/26/16 04:08 0.5 MG Procedure Sodium Chloride 1000 ml @ 200 mls/hr IV Sodium Chloride 500 ml @ 999 mls/hr IV ECG Indication: weakness Rate (beats per minute): 66 Rhythm: normal sinus Findings: no acute ischemic change, no ectopy ED Course 0025: Past medical records reviewed. She had a CT scan of her abdomen and pelvis on November 19, 2016 to reassess a pancreatic mass compared to June. There was an interval increase in the extent of the infiltrate of pancreatic mass at the neck-body junction. The patient was evaluated in room A2. A complete history and physical exam was performed. Laboratory studies were drawn as above. A twelve-lead EKG was obtained as described above. The patient went for CT scan of her facial bones and brain as described above. 0219: Ordered Sodium Chloride 1000 ml @ 200 mls/hr IV, Sodium Chloride 500 ml @ 999 mls/hr IV. 0227: Upon reevaluation, I discussed findings and results with the patient. She verbalized agreement of the treatment plan. I spoke with Dr. Ellis, working with Dr. Kapoor of the [place] [facility]. The patient will be evaluated for further management and care. 0310: Nurses tested the patient's stool and found it to be heme positive. Medical Decision The patient is a 76 year old female who presents to the ED with weakness. Differential diagnosis includes metastatic cancer, hyponatremia, chemotherapy side effects, dehydration, hyperglycemia, UTI, and anemia. Laboratory Results: No leukocytosis, significantly anemic with a hemoglobin of 7.8 which is down 2 grams of hemoglobin since beginning of the month, platelet count 115, BUN 34, creatinine 1.5, glucose 114, normal LFTs, negative cardiac enzymes, normal TSH, normal coagulation studies, and urinalysis normal. The patient is suffering from pancreatic cancer. She recently completed a course of radiation and chemotherapy. Over the past 24-36 hours, she's developed extreme weakness to the point that she fell this morning. Has a hematoma noted over the right lateral face. CT scan of the brain and facial bones was negative for fracture. The patient appears dehydrated. She has no elevated BUN/creatinine. She is significantly anemic and will require blood transfusion. This may have all lead to her weakness and fall. I discussed the case with the [facility] Hospitalist and they will evaluate for further management. Medication Reconcilliation Current Medication List: was personally reviewed by me Blood Pressure Screening Patient's blood pressure: Elevated blood pressure Will be addressed during her inpatient stay. Consults Time Called: 224 Consulting Physician: Dr. Ellis with Dr. Kapoor - [facility] [place] Returned Call: [phone] Discussed the patient's case. The patient will be evaluated for further management. Impression Primary Impression: GREGORY (acute kidney injury) Additional Impressions: Dehydration Weakness Fall Anemia Thrombocytopenia Scribe Attestation The scribe's documentation has been prepared under my direction and personally reviewed by me in its entirety. I confirm that the note above accurately reflects all work, treatment, procedures, and medical decision making performed by me. Departure Information Dispostion Being Evaluated By Hospitalist Referrals RV. Matute MD (PCP) Patient Instructions My [facility] Problem Qualifiers Additional Impressions: Fall Encounter type: initial encounter Qualified Codes: W19.XXXA - Unspecified fall, initial encounter Anemia Anemia type: unspecified type Qualified Codes: D64.9 - Anemia, unspecified
[2016-11-26 01:11] LABS: HEMATOCRIT 24.5 % (37-47); MEAN CELL VOLUME 85.7 fL (80-100); MEAN CORPUSCULAR HEMOGLOBIN 27.3 pg (25-34); MEAN CORPUSCULAR HGB CONC 31.8 g/dl (32-36); MEAN PLATELET VOLUME 10.4 fL (7.4-10.4); PLATELET COUNT 115 K/uL (130-400); RED BLOOD COUNT 2.86 M/uL (4.2-5.4)
[2016-11-26 01:21] LABS: INR 1.1 (0.9-1.1); PARTIAL THROMBOPLASTIN RATIO 1.4; PROTHROMBIN TIME (PATIENT) 11.3 SECONDS (9.0-12.0)
[2016-11-26 01:29] LABS: ALT/SGPT 9 U/L (12-78); AST/SGOT 12 U/L (15-37); BLOOD UREA NITROGEN 34 mg/dl (7-18); BUN/CREATININE RATIO 22.7 (10-20); CALCIUM 8.8 mg/dl (8.5-10.1); CARBON DIOXIDE 25 mmol/L (21-32); CHLORIDE 106 mmol/L (98-107); GLUCOSE 114 mg/dl (70-99); POTASSIUM 3.9 mmol/L (3.5-5.1); SODIUM 140 mmol/L (136-145)
[2016-11-26 01:40] LABS: ALKALINE PHOSPHATASE 86 U/L (45-117); CKMB/CK RATIO 0.7 (0-3.0)
[2016-11-26 01:41] LABS: COMPLETE YES; EOS % 0.4 %; IG% 0.2 %; LYMPH % 13.3 %; LYMPH ABS # 0.65 K/uL (1.2-3.4); NEUT % 74.1 %
[2016-11-26 02:13] LABS: URINE APPEARANCE CLEAR (CLEAR); URINE BILIRUBIN NEG (NEG); URINE COLOR YELLOW; URINE EPITHELIAL CELL AUTO >30 /lpf (0-5); URINE NITRITE NEG (NEG); UROBILINOGEN NEG (NEG); ZZURINE CULT IF INDIC CATH NO
[2016-11-26 02:14] LABS: MANUAL MICROSCOPIC REQUIRED? NO; REVIEW REQ? NO
[2016-11-26] MEDS ORDERED: SODIUM CHLORIDE 0.9% 500ML 500 ML IV STA (02:19)
[2016-11-26] MEDS ORDERED: SODIUM CHLORIDE 0.9% 1000ML 1,000 ML IV STA (02:19)
[2016-11-26] MEDS ORDERED: ONDANSETRON INJ 2 MG/ML 2 ML VIAL IV PRN (03:30)
[2016-11-26] MEDS ORDERED: POLYETHYLENE (MIRALAX) 17 GM PACK PO PRN (03:30)
[2016-11-26] MEDS ORDERED: HYDROmorphone INJ 0.5 MG/0.5 ML SYR IV STA (03:31)
--- NOTE | 2016-11-26 03:36 | History and Physical ---
History & Physical Date & Time of Service: Nov 26, 2016 at 03:34 Chief Complaint: FALL Primary Care Physician: RV. Matute MD History of Present Illness Source: patient, family 76-year-old female with a past medical history of coronary artery disease status post CABG, hypertension, pancreatic cancer currently undergoing chemotherapy presented to the ER with complaints of weakness started about 2 days ago. The patient had been receiving chemotherapy and radiation for pancreatic cancer , last session about a month ago and had noticed increased fatigue and weakness within the last few days. This afternoon, while she was walking to the restroom , she felt that her legs buckled and she fell down onto a carpeted surface. She has also noticed increased jerking movements of her hands and legs. Denies any fevers or chills, nausea or vomiting, abdominal pain. She stated that she had decreased by mouth intake and had felt as if she was in a" fog "over the weekend. Past Medical/Surgical History Medical Problems: (1) Angina pectoris Status: Chronic (2) Hypertension Status: Chronic Family History No pertinent family history Social History Smoking Status: Never Smoker Smokeless Tobacco Use: No Alcohol Use: none Drug Use: none Marital Status: single Occupational Status: retired Immunizations History of Influenza Vaccine: Unknown History of Tetanus Vaccine?: Unknown History of Pneumococcal: Unknown History of Hepatitis B Vaccine: Unknown Multi-Drug Resistant Organisms History of MDRO: No Allergies Coded Allergies: Adhesives (Verified Allergy, Unknown, RASH, 11/26/16) Metaxalone (Verified Allergy, Unknown, RASH, 11/26/16) Oxycodone (Verified Allergy, Unknown, RASH, 11/26/16) Tramadol (Verified Allergy, Unknown, RASH, 11/26/16) Morphine (Verified Adverse Reaction, Intermediate, DIFFICULTY URINATING, SEVERE SWELLING, 11/26/16) Home Medications Scheduled Atenolol (Tenormin), 1 TAB PO QAM Capecitabine (Xeloda), 500 MG PO Q12H Clopidogrel (Plavix), 75 MG PO DAILY Esomeprazole Magnesium (Nexium), 40 MG PO QAM Furosemide (Lasix), 1 TAB PO DIRECTED Gabapentin (Neurontin), 100 MG PO QAM Gabapentin (Neurontin), 200 MG PO QPM Isosorbide Mononitrate Ext Rel (Imdur Ext Rel), 60 MG PO QAM Losartan Potassium (Cozaar), 1 TAB PO HS Metoclopramide (Reglan), 10 MG PO QID Metronidazole (Topical) (Metrocream), 1 APPLN TOP DAILY Omeprazole (Prilosec), 20 MG PO DAILY Scheduled PRN Fentanyl (Duragesic), 100 MCG TD [id number] PRN for Pain Hydromorphone Hcl (Dilaudid), 1 TAB PO QID PRN for Pain Naproxen (Aleve), 220 MG PO BID PRN for Pain Nitroglycerin (Nitrostat), 0.4 MG UT UD PRN for Chest Pain Ondansetron Hcl (Zofran), 8 MG PO Q8 PRN for Nausea Prochlorperazine Maleate (Compazine), 10 MG PO Q6H PRN for Nausea or Vomiting Review of Systems Constitutional: + weakness, + fatigue, No fever, No chills Eyes: No worsening of vision ENT: No hearing loss Respiratory: No cough, No sputum, No wheezing Cardiovascular: No chest pain Abdomen: No pain, No nausea, No vomiting Genitourinary - Female: No dysuria, No urinary frequency, No urinary urgency Neurologic: No memory loss Psychiatric: No depression symptoms Endocrine: No fatigue Hematologic / Lymphatic: No abnormal bleeding/bruising Integumentary: No rash Physical Exam Vital Signs Date Time Temp Pulse Resp B/P (MAP) Pulse Ox O2 Delivery O2 Flow Rate FiO2 11/26/16 02:37 135/58 11/26/16 02:34 58 16 96 11/26/16 02:19 59 15 97 11/26/16 02:14 58 15 96 11/26/16 01:44 60 13 97 11/26/16 01:15 139/79 11/26/16 01:15 60 16 139/79 99 Room Air 11/26/16 00:44 65 23 100 11/26/16 00:29 70 11/26/16 00:24 95 Room Air 11/26/16 00:24 36.6 67 22 142/65 95 Room Air 11/26/16 00:22 142/65 General Appearance: WD/WN, no apparent distress Head: + evidence of trama (right maxillary soft tissue swelling ) ENT: hearing grossly normal Neck: supple Respiratory/Chest: chest non-tender, lungs clear Cardiovascular: regular rate, rhythm Abdomen/GI: normal bowel sounds, non tender Back: normal inspection Extremities/Musculoskelatal: no pedal edema Neurologic/Psych: alert, normal mood/affect, oriented x 3 Diagnostics Laboratory Results Results Past 24 Hours Test 11/26/16 00:54 11/26/16 01:55 Range/Units White Blood Count 4.90 4.8-10.8 K/uL Red Blood Count 2.86 4.2-5.4 M/uL Hemoglobin 7.8 12.0-16.0 g/dL Hematocrit 24.5 37-47 % Mean Corpuscular Volume 85.7 80-100 fL Mean Corpuscular Hemoglobin 27.3 25-34 pg Mean Corpuscular Hemoglobin Concent 31.8 32-36 g/dl Platelet Count 115 130-400 K/uL Mean Platelet Volume 10.4 7.4-10.4 fL Neutrophils (%) (Auto) 74.1 % Lymphocytes (%) (Auto) 13.3 % Monocytes (%) (Auto) 12.0 % Eosinophils (%) (Auto) 0.4 % Basophils (%) (Auto) 0.0 % Neutrophils # (Auto) 3.63 1.4-6.5 K/uL Lymphocytes # (Auto) 0.65 1.2-3.4 K/uL Monocytes # (Auto) 0.59 0.11-0.59 K/uL Eosinophils # (Auto) 0.02 0-0.5 K/uL Basophils # (Auto) 0.00 0-0.2 K/uL RDW Standard Deviation 61.9 36.4-46.3 fL RDW Coefficient of Variation 19.5 11.5-14.5 % Immature Granulocyte % (Auto) 0.2 % Immature Granulocyte # (Auto) 0.01 0.00-0.02 K/uL Red Blood Cell Morphology Unremarkable Prothrombin Time 11.3 9.0-12.0 SECONDS Prothromb Time International Ratio 1.1 0.9-1.1 Activated Partial Thromboplast Time 36.8 21.0-31.0 SECONDS Partial Thromboplastin Ratio 1.4 Sodium Level 140 136-145 mmol/L Potassium Level 3.9 3.5-5.1 mmol/L Chloride Level 106 98-107 mmol/L Carbon Dioxide Level 25 21-32 mmol/L Anion Gap 9.0 3-11 mmol/L Blood Urea Nitrogen 34 7-18 mg/dl Creatinine 1.50 0.60-1.20 mg/dl Est Creatinine Clear Calc Drug Dose 23.7 ml/min Estimated GFR () 38.5 Estimated GFR (Non- 33.3 BUN/Creatinine Ratio 22.7 10-20 Random Glucose 114 70-99 mg/dl Calcium Level 8.8 8.5-10.1 mg/dl Total Bilirubin 0.3 0.2-1 mg/dl Direct Bilirubin < 0.1 0-0.2 mg/dl Aspartate Amino Transf (AST/SGOT) 12 15-37 U/L Alanine Aminotransferase (ALT/SGPT) 9 12-78 U/L Alkaline Phosphatase 86 45-117 U/L Total Creatine Kinase 97 26-192 U/L Creatine Kinase MB 0.7 0.5-3.6 ng/ml Creatine Kinase MB Ratio 0.7 0-3.0 Troponin I < 0.015 0-0.045 ng/ml Total Protein 6.3 6.4-8.2 gm/dl Albumin 2.4 3.4-5.0 gm/dl Thyroid Stimulating Hormone (TSH) 1.980 0.300-4.500 uIu/ml Urine Color YELLOW Urine Appearance CLEAR CLEAR Urine pH 5.0 4.5-7.5 Urine Specific [place] 1.020 1.000-1.030 Urine Protein NEG NEG Urine Glucose (UA) NEG NEG Urine Ketones NEG NEG Urine Occult Blood NEG NEG Urine Nitrite NEG NEG Urine Bilirubin NEG NEG Urine Urobilinogen NEG NEG Urine Leukocyte Esterase NEG NEG Urine WBC (Auto) 1-5 0-5 /hpf Urine RBC (Auto) 0-4 0-4 /hpf Urine Hyaline Casts (Auto) 1-5 0-5 /lpf Urine Epithelial Cells (Auto) >30 0-5 /lpf Urine Bacteria (Auto) NEG NEG Impression Assessment and Plan 76-year-old female with a past medical history of coronary artery disease status post CABG, hypertension, pancreatic cancer currently undergoing chemotherapy presented to the ER with complaints of weakness started about 2 days ago. Fall secondary to weakness/deconditioning: - Head CT negative for any intracranial bleeds - Maxillofacial CT negative for fractures - Pain control with fentanyl patch and Dilaudid IV as needed for breakthrough pain Acute kidney injury: - Likely secondary to decreased by mouth intake/dehydration - Creatinine at 1.5 - Continue hydration and monitor creatinine Pancreatic cancer: - Currently undergoing chemotherapy and radiation - Continue Xeloda - Oncology consult - Symptom control with Zofran/Compazine/Dilaudid Coronary artery disease status post CABG/HTN -Continue Plavix, Imdur, atenolol, losartan Neuropathy: - Continue gabapentin DVT prophylaxis: Subcutaneous heparin DO NOT RESUSCITATE Disposition :admitted to [facility] Attending Addendum: I have physically seen and examined this patient, have supervised the medical residents activities, and agree with the H&P as noted above with the following exceptions as noted. The patient presents to emergency department with fatigue and generalized weakness worsening over the past 2 days. While walking today her legs weekend, and she fell onto a carpeted surface. She notes increased jerking movements of both hands and legs. The patient denies chest pain, palpitations, shortness of breath, cough, lower extremity swelling, vision change, hearing change, sore throat, fevers, chills, sweats, weight change, nausea, vomiting, diarrhea or constipation, abdominal pain, pelvic pain, blood in urine or stool, dysuria, urinary frequency or urgency, headache, memory loss, rash, abnormal bruising or bleeding, night sweats, or allergy symptoms. The review of systems is otherwise negative other than for that already noted above, and at least 10 systems have been reviewed. The patient is awake, well-developed and adequately nourished, alert and oriented 3, normocephalic and atraumatic, lying in bed and in no acute distress. HEENT--PERRL, EOMI, mucous membranes and oropharynx dry. Right maxillary ridge swelling. Neck--supple, no JVD or bruits, thyroid normal, trachea midline, no adenopathy. Heart--normal S1 and S2, no extra beats, no murmurs, rubs or gallops. Lungs--clear bilaterally with good air movement, no respiratory distress, no accessory muscle use. Abdomen--normal bowel sounds and soft, nontender and nondistended, no hernias or masses, no organomegaly. Extremities--no cyanosis, clubbing or edema. There are good distal pulses b/l. Dermatologic--normal skin turgor, normal color, warm and dry, no abnormal lymph nodes, no rash. Neurologic--cranial nerves II through XII grossly intact. Rheumatologic--normal range of motion, nontender, muscles and joints. Psychiatric--normal affect. Assessment and Plan: 1. Status post fall/generalized weakness and deconditioning/decreased oral intake-- Admitted to the medical floor. Place on IV fluids for rehydration. Follow serial BMP and magnesium levels. Nutritional supplements when necessary. 2. Pancreatic Cancer--undergoing chemotherapy and radiation. Consults oncology. Place on Zofran/Compazine/Dilaudid when necessary. 3. CAD/hypertension/CABG-- Continue Plavix, Imdur, atenolol, losartan. Level of Care Med/Surg Advanced Directives Existing Advance Directive: Yes Existing Living Will: Yes Existing Power of Inspector Canvas Products: Yes Resuscitation Status DO NOT RESUSCITATE VTE Prophylaxis VTE Risk Assessment Done? Y/N: Yes Risk Level: Moderate Given or contraindicated: Unfractionated heparin SQ Resident Tracking Resident Involvement: Resident Care Provided Care Provided: Adult Hospital Medicine
[2016-11-26] MEDS ORDERED: FENTANYL 100 MCG/HR TDSY TD PRN (03:45)
[2016-11-26] MEDS ORDERED: PROCHLORPERAZINE MALEATE 10 MG TAB PO PRN (03:45)
[2016-11-26] MEDS ORDERED: NITROGLYCERIN 0.4 MG SL PER TAB CHARGE UT PRN (03:45)
[2016-11-26] MEDS ORDERED: HEPARIN SOD 5000 UNIT/0.5 ML CARP SQ SCH (06:00)
[2016-11-26] MEDS: HYDROmorphone INJ 0.5 MG/0.5 ML SYR IV PRN ×3 (06:20→19:50)
--- NOTE | 2016-11-26 06:32 | DIAGNOSTIC IMAGING REPORT ---
CT HEAD WITHOUT CONTRAST (CT) CLINICAL HISTORY: Weakness, fall. History of pancreatic carcinoma. COMPARISON STUDY: 03/04/2015 TECHNIQUE: Axial CT of the brain is performed from the vertex to the skull base. IV contrast was not administered for this examination. A dose lowering technique was utilized adhering to the principles of ALARA. CT DOSE: FINDINGS: No intra or extra-axial mass lesions are visualized. There is no CT evidence of acute cortical infarction. There is no evidence of midline shift. There is no acute hemorrhage. No calvarial fractures are visualized. There are patchy white matter hypodensities likely on a small vessel basis. There is no evidence of pathologic ventricular dilatation. There is no evidence of acute sinusitis IMPRESSION: No acute intracranial findings Electronically signed by: Ba Lara M.D. 11/26/2016 6:31 AM Dictated Date/Time: 11/26/2016 6:30 AM
[2016-11-26 07:03] LABS: BUN/CREATININE RATIO 24.1 (10-20); CALCIUM 8.8 mg/dl (8.5-10.1); CREATININE 1.3 mg/dl (0.60-1.20); POTASSIUM 3.8 mmol/L (3.5-5.1)
--- NOTE | 2016-11-26 07:12 | DIAGNOSTIC IMAGING REPORT ---
MAXILLOFACIAL CT CT DOSE: 761.67 mGy.cm HISTORY: eval for facial trauma - right eye TECHNIQUE: Multiaxial CT images of the maxillofacial region were performed and reformatted in the coronal plane without the use of contrast. A dose lowering technique was utilized adhering to the principles of ALARA. COMPARISON: None. FINDINGS: The visualized cervical spine, skull base, pterygoid plates, nasal bones, lamina papyracea, orbital floors, mandible, and zygomatic arches are intact. No fractures. The orbits are unremarkable. Right maxillary soft tissue swelling. IMPRESSION: No fractures within the maxillofacial region. Electronically signed by: Rudy Au M.D. 11/26/2016 7:11 AM Dictated Date/Time: 11/26/2016 7:08 AM
[2016-11-26] MEDS: CLOPIDOGREL BISULFATE 75 MG TAB PO SCH (07:39)
[2016-11-26] MEDS: PANTOprazole SOD 40 MG TAB PO SCH (07:40)
[2016-11-26] MEDS: METOCLOPRAMIDE HCL 10 MG TAB PO SCH ×4 (07:41→20:57)
[2016-11-26] MEDS: ISOSORBIDE MONONITRATE 60 MG TABCR PO SCH (07:41)
[2016-11-26] MEDS: GABAPENTIN 100 MG CAP PO SCH ×2 (07:42→20:58)
[2016-11-26] MEDS: XELODA~ORDER AWAITING ACTION SCH ×3 (07:45→23:32)
[2016-11-26] MEDS: CHECK FENTANYL PATCH PLACEMENT SCH ×3 (07:46→23:32)
[2016-11-26] MEDS ORDERED: NON-FORMULARY MEDICATION (Omeprazole (Prilosec) 20 MG) PO SCH (08:00)
[2016-11-26] MEDS: FENTANYL PATCH REMOVE & WASTE SCH (08:00)
[2016-11-26] MEDS: FENTANYL 100 MCG/HR TDSY TD SCH (08:01)
--- NOTE | 2016-11-26 10:58 | Oncology Consultation ---
Oncology/Heme Consultation Date of Consultation: Nov 26, 2016. Attending Physician: Rosi Malone MD Reason for Consultation: Locally advanced pancreatic carcinoma History of Present Illness Ms. Mosley is a 76-year-old female that presented to us in December 2015 with a lesion radiographically that appeared unresectable and was diagnosed as pancreatic carcinoma. She has been treated with gemcitabine and Abraxane. An attempt or an evaluation for resection by a physician in [facility] could not be done. There was some tumor ablation that took place during that procedure. Since then she has been receiving radiation therapy to the lesion along with Xeloda. That therapy was completed the third week of September. She presents now with a declining performance status and feeling intermittently quite weak. She denies any fever or chills. She denies any significant nausea. She has had a decrease in appetite. She has had increasing back pain. Past Medical/Surgical History Medical Problems: (1) Abdominal pain Status: Acute (2) GREGORY (acute kidney injury) Status: Acute (3) Anemia Status: Acute (4) Dehydration Status: Acute (5) Diffuse abdominal pain Status: Acute (6) Fall Status: Acute (7) Precordial chest pain Status: Acute (8) Thrombocytopenia Status: Acute (9) Weakness Status: Acute Family History No pertinent family history Social History Smoking Status: Never Smoker Smokeless Tobacco Use: No Drug Use: none Marital Status: single Housing Status: lives with family Occupation Status: retired Allergies Coded Allergies: Adhesives (Verified Allergy, Unknown, RASH, 11/26/16) Metaxalone (Verified Allergy, Unknown, RASH, 11/26/16) Oxycodone (Verified Allergy, Unknown, RASH, 11/26/16) Tramadol (Verified Allergy, Unknown, RASH, 11/26/16) Morphine (Verified Adverse Reaction, Intermediate, DIFFICULTY URINATING, SEVERE SWELLING, 11/26/16) Home Medications Scheduled Atenolol (Tenormin), 1 TAB PO QAM Capecitabine (Xeloda), 500 MG PO Q12H Clopidogrel (Plavix), 75 MG PO DAILY Esomeprazole Magnesium (Nexium), 40 MG PO QAM Furosemide (Lasix), 1 TAB PO DIRECTED Gabapentin (Neurontin), 100 MG PO QAM Gabapentin (Neurontin), 200 MG PO QPM Isosorbide Mononitrate Ext Rel (Imdur Ext Rel), 60 MG PO QAM Losartan Potassium (Cozaar), 1 TAB PO HS Metoclopramide (Reglan), 10 MG PO QID Metronidazole (Topical) (Metrocream), 1 APPLN TOP DAILY Omeprazole (Prilosec), 20 MG PO DAILY Scheduled PRN Fentanyl (Duragesic), 100 MCG TD CQ72HR PRN for Pain Hydromorphone Hcl (Dilaudid), 1 TAB PO QID PRN for Pain Naproxen (Aleve), 220 MG PO BID PRN for Pain Nitroglycerin (Nitrostat), 0.4 MG UT UD PRN for Chest Pain Ondansetron Hcl (Zofran), 8 MG PO Q8 PRN for Nausea Prochlorperazine Maleate (Compazine), 10 MG PO Q6H PRN for Nausea or Vomiting Current Inpatient Medications Current Inpatient Medications Medications (Trade) Dose Ordered Sig/Serina Route Start Time Stop Time Status Last Admin Dose Admin Acetaminophen (Tylenol Tab) 650 mg Q4H PRN PO 11/26/16 03:30 12/26/16 03:29 Polyethylene (Miralax Powder Packet) 17 gm DAILY PRN PO 11/26/16 03:30 12/26/16 03:29 Ondansetron HCl (Zofran Inj) 4 mg Q6H PRN IV 11/26/16 03:30 12/26/16 03:29 Atenolol (Tenormin Tab) 50 mg QAM PO 11/26/16 08:00 12/26/16 08:59 11/26/16 07:41 50 MG Clopidogrel Bisulfate (plAVix TAB) 75 mg DAILY PO 11/26/16 08:00 12/26/16 08:59 11/26/16 07:39 75 MG Gabapentin (Neurontin Cap) 100 mg QAM PO 11/26/16 08:00 12/26/16 08:59 11/26/16 07:42 100 MG Gabapentin (Neurontin Cap) 200 mg QPM PO 11/26/16 21:00 12/26/16 20:59 Isosorbide Mononitrate (Imdur Ext Rel Tab) 60 mg QAM PO 11/26/16 08:00 12/26/16 08:59 11/26/16 07:41 60 MG Losartan Potassium (coZAAR TAB) 25 mg HS PO 11/26/16 21:00 12/26/16 20:59 Metoclopramide HCl (Reglan Tab) 10 mg QID PO 11/26/16 08:00 12/26/16 08:59 11/26/16 07:41 10 MG Nitroglycerin (Nitrostat Tab) 0.4 mg UD PRN UT 11/26/16 03:45 12/26/16 03:44 Prochlorperazine Maleate (Compazine Tab) 10 mg Q6H PRN PO 11/26/16 03:45 12/26/16 03:44 Miscellaneous Information (Order Awaiting Action) 1 ea QS N/A 11/26/16 08:00 12/26/16 07:59 Pantoprazole Sodium (Protonix Tab) 40 mg QAM PO 11/26/16 08:00 12/26/16 08:59 11/26/16 07:40 40 MG Hydromorphone HCl (Dilaudid Inj) 0.5 mg Q6H PRN IV 11/26/16 03:45 12/10/16 03:44 11/26/16 06:20 0.5 MG Fentanyl (Duragesic Patch) 100 mcg Q3D TD 11/26/16 08:00 12/10/16 07:59 11/26/16 08:01 100 MCG Miscellaneous (Fentanyl Patch Remove & Waste) 1 ea Q3D N/A 11/26/16 07:59 12/26/16 07:58 11/26/16 08:00 1 EA Miscellaneous Information (Check Fentanyl Patch Placement) 1 ea QS N/A 11/26/16 08:00 12/26/16 07:59 11/26/16 07:46 1 EA Heparin Sodium (Porcine) (Heparin 100 Unit/ml 5ml Flush) 5 ml PRN PRN IV 11/26/16 06:00 12/26/16 05:59 11/26/16 06:21 5 ML Review of Systems Constitutional: Negative for night sweats, or fever. Positive for increasing weakness Eyes: Negative for event change of vision ENT: Negative for epistaxis, nasal discharge, sore throat, or deafness Cardiovascular: Negative for chest pain, palpitations, dizziness, diaphoresis Respiratory: Negative for new shortness of breath,hemoptysis, or purulent cough Gastrointestinal: Negative for diarrhea, hematemesis, melena, nausea, vomiting , or dyspepsia Integumentary (skin): Negative for rash or jaundice discoloration Genitourinary: Negative for urinary frequency, hematuria, or dysuria Neurological: Negative for weakness, seizure activity, headache, or dizziness Lymphatic/Hematologic: Negative for petechiae, bleeding or new adenopathy Musculoskeletal: Negative for new joint pain she has had some increasing back pain Allergic/Immunologic: Negative for unusual rash or pruritis. Physical Exam Date Time Temp Pulse Resp B/P (MAP) Pulse Ox O2 Delivery O2 Flow Rate FiO2 11/26/16 08:18 36.6 65 18 181/78 (112) 95 Room Air 11/26/16 05:17 36.6 67 18 177/76 96 Room Air 11/26/16 04:12 65 17 157/66 96 11/26/16 02:37 135/58 11/26/16 02:34 58 16 96 11/26/16 02:19 59 15 97 11/26/16 02:14 58 15 96 11/26/16 01:44 60 13 97 11/26/16 01:15 139/79 11/26/16 01:15 60 16 139/79 99 Room Air 11/26/16 00:44 65 23 100 11/26/16 00:29 70 11/26/16 00:24 95 Room Air 11/26/16 00:24 36.6 67 22 142/65 95 Room Air 11/26/16 00:22 142/65 Constitutional: vitals are stable. Eyes: Eyes are SHELBIE EOMI without conjuctival erythema or icterus. ENT: External examination was negative for masses. Neck: Negative for masses or palpable thyromegaly Respiratory: Lung sounds were generally clear bilaterally Cardiovascular: Heart was RRR without significant murmur, gallops aoe rubs Gastrointestinal: No palpable hepatic or splenomegaly. The abdomen was soft with normal bowel sounds. Lymphatic system: there was no palpable peripheral lymphadenopathy Musculoskeletal System: The musculoskeletal system seemed concordant with age. Skin: The skin was negative for jaundice. Neurologic exam: The exam was negative for any focal findings. Deep tendon reflexes were equal and symmetrical. She did appear generally very weak Psychiatric exam: Was essentially negative with normal mood and effect. Breast exam: Not done Extremities: Negative for significant edema or tenderness or erythema Laboratory Results Last 24 Hours Test 11/26/16 00:54 11/26/16 01:55 11/26/16 05:58 White Blood Count 4.90 K/uL Red Blood Count 2.86 M/uL Hemoglobin 7.8 g/dL Hematocrit 24.5 % Mean Corpuscular Volume 85.7 fL Mean Corpuscular Hemoglobin 27.3 pg Mean Corpuscular Hemoglobin Concent 31.8 g/dl Platelet Count 115 K/uL Mean Platelet Volume 10.4 fL Neutrophils (%) (Auto) 74.1 % Lymphocytes (%) (Auto) 13.3 % Monocytes (%) (Auto) 12.0 % Eosinophils (%) (Auto) 0.4 % Basophils (%) (Auto) 0.0 % Neutrophils # (Auto) 3.63 K/uL Lymphocytes # (Auto) 0.65 K/uL Monocytes # (Auto) 0.59 K/uL Eosinophils # (Auto) 0.02 K/uL Basophils # (Auto) 0.00 K/uL RDW Standard Deviation 61.9 fL RDW Coefficient of Variation 19.5 % Immature Granulocyte % (Auto) 0.2 % Immature Granulocyte # (Auto) 0.01 K/uL Red Blood Cell Morphology Unremarkable Prothrombin Time 11.3 SECONDS Prothromb Time International Ratio 1.1 Activated Partial Thromboplast Time 36.8 SECONDS Partial Thromboplastin Ratio 1.4 Sodium Level 140 mmol/L 139 mmol/L Potassium Level 3.9 mmol/L 3.8 mmol/L Chloride Level 106 mmol/L 107 mmol/L Carbon Dioxide Level 25 mmol/L 25 mmol/L Anion Gap 9.0 mmol/L 7.0 mmol/L Blood Urea Nitrogen 34 mg/dl 31 mg/dl Creatinine 1.50 mg/dl 1.30 mg/dl Est Creatinine Clear Calc Drug Dose 23.7 ml/min 26.0 ml/min Estimated GFR () 38.5 45.8 Estimated GFR (Non- 33.3 39.5 BUN/Creatinine Ratio 22.7 24.1 Random Glucose 114 mg/dl 107 mg/dl Calcium Level 8.8 mg/dl 8.8 mg/dl Total Bilirubin 0.3 mg/dl Direct Bilirubin < 0.1 mg/dl Aspartate Amino Transf (AST/SGOT) 12 U/L Alanine Aminotransferase (ALT/SGPT) 9 U/L Alkaline Phosphatase 86 U/L Total Creatine Kinase 97 U/L Creatine Kinase MB 0.7 ng/ml Creatine Kinase MB Ratio 0.7 Troponin I < 0.015 ng/ml Total Protein 6.3 gm/dl Albumin 2.4 gm/dl Thyroid Stimulating Hormone (TSH) 1.980 uIu/ml Urine Color YELLOW Urine Appearance CLEAR Urine pH 5.0 Urine Specific [place] 1.020 Urine Protein NEG Urine Glucose (UA) NEG Urine Ketones NEG Urine Occult Blood NEG Urine Nitrite NEG Urine Bilirubin NEG Urine Urobilinogen NEG Urine Leukocyte Esterase NEG Urine WBC (Auto) 1-5 /hpf Urine RBC (Auto) 0-4 /hpf Urine Hyaline Casts (Auto) 1-5 /lpf Urine Epithelial Cells (Auto) >30 /lpf Urine Bacteria (Auto) NEG Assessment & Plan Locally advanced pancreatic carcinoma CT scan done on November 19 was reviewed and there is clear evidence of progression of disease. With her declining performance status and increasing weakness and decreasing appetite I suspect this is all related to progression of pancreatic carcinoma. I reviewed that with Ms. Mosley today. I stated that no further chemotherapy is being planned. I believe at this juncture palliative care/hospice should be consulted. I reviewed this with the patient and she seemed to understand. She lives alone. I have asked her if she thought that she can continue that and she was adamant about living alone. With that then I would ask that a hospice consult be obtained. We will follow along with you. She may need 1 unit of blood to help with her vigor. A small dose of daily prednisone perhaps 10 mg a day might also be helpful with overall appetite and vibrancy.
--- NOTE | 2016-11-26 11:58 | Progress Note ---
Subjective Date of Service: Nov 26, 2016. Subjective Pt evaluation today including: conversation w/ patient, physical exam, chart review, lab review, review of studies, review of inpatient medication list Problem List Medical Problems: (1) Abdominal pain Status: Acute (2) GREGORY (acute kidney injury) Status: Acute (3) Anemia Status: Acute (4) Dehydration Status: Acute (5) Diffuse abdominal pain Status: Acute (6) Fall Status: Acute (7) Precordial chest pain Status: Acute (8) Thrombocytopenia Status: Acute (9) Weakness Status: Acute Review of Systems Constitutional: + weight loss, + weakness, No see HPI, No fever, No chills, No sweats, No fatigue, No problem reported Eyes: No see HPI, No worsening of vision, No eye pain, No redness, No discharge , No diplopia, No problem reported ENT: No see HPI, No hearing loss, No unusual epistaxis, No nasal symptoms, No sore throat, No tinnitus, No dental problems, No trouble swallowing, No problem reported Respiratory: + sputum Cardiac: No see HPI, No chest pain, No orthopnea, No PND, No edema, No claudication, No palpitations, No problem reported Abdomen: No see HPI, No pain, No nausea, No vomiting, No diarrhea, No constipation, No GI bleeding, No problem reported Musculoskeletal: + joint pain (hip), No see HPI, No muscle pain, No swelling, No calf pain, No problem reported Neurologic: No see HPI, No memory loss, No paralysis, No weakness, No numbness/ tingling, No vertigo, No balance problems, No problem reported Psychiatric: No see HPI, No depression symptoms, No anhedonism, No anxiety, No insomnia, No substance abuse, No problem reported Heme: No see HPI, No abnormal bleeding/bruising, No clotting problems, No swollen lymph nodes, No night sweats, No problem reported Endo: No see HPI, No fatigue, No excessive thirst, No excessive urination, No problem reported Skin: No see HPI, No rash, No itch, No new/changing skin lesions, No color change, No bleeding, No problem reported Objective Vital Signs Date Time Temp Pulse Resp B/P (MAP) Pulse Ox O2 Delivery O2 Flow Rate FiO2 11/26/16 08:18 36.6 65 18 181/78 (112) 95 Room Air 11/26/16 05:17 36.6 67 18 177/76 96 Room Air 11/26/16 04:12 65 17 157/66 96 11/26/16 02:37 135/58 11/26/16 02:34 58 16 96 11/26/16 02:19 59 15 97 11/26/16 02:14 58 15 96 11/26/16 01:44 60 13 97 11/26/16 01:15 139/79 11/26/16 01:15 60 16 139/79 99 Room Air 11/26/16 00:44 65 23 100 11/26/16 00:29 70 11/26/16 00:24 95 Room Air 11/26/16 00:24 36.6 67 22 142/65 95 Room Air 11/26/16 00:22 142/65 Physical Exam General Appearance: WD/WN, no apparent distress Eyes: normal inspection, EOMI ENT: normal ENT inspection, hearing grossly normal Neck: supple Respiratory/Chest: chest non-tender, lungs clear, normal breath sounds, no respiratory distress, no accessory muscle use Cardiovascular: regular rate, rhythm, no edema, no gallop, no JVD, no murmur Abdomen: normal bowel sounds, non tender, soft, no organomegaly Extremities: normal range of motion, non-tender, normal inspection 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, no motor/sensory deficits, alert, normal mood/affect, oriented x 3 Skin: normal color, warm/dry, no rash Laboratory Results Last 24 Hours Test 11/26/16 00:54 11/26/16 01:55 11/26/16 05:58 White Blood Count 4.90 K/uL Red Blood Count 2.86 M/uL Hemoglobin 7.8 g/dL Hematocrit 24.5 % Mean Corpuscular Volume 85.7 fL Mean Corpuscular Hemoglobin 27.3 pg Mean Corpuscular Hemoglobin Concent 31.8 g/dl Platelet Count 115 K/uL Mean Platelet Volume 10.4 fL Neutrophils (%) (Auto) 74.1 % Lymphocytes (%) (Auto) 13.3 % Monocytes (%) (Auto) 12.0 % Eosinophils (%) (Auto) 0.4 % Basophils (%) (Auto) 0.0 % Neutrophils # (Auto) 3.63 K/uL Lymphocytes # (Auto) 0.65 K/uL Monocytes # (Auto) 0.59 K/uL Eosinophils # (Auto) 0.02 K/uL Basophils # (Auto) 0.00 K/uL RDW Standard Deviation 61.9 fL RDW Coefficient of Variation 19.5 % Immature Granulocyte % (Auto) 0.2 % Immature Granulocyte # (Auto) 0.01 K/uL Red Blood Cell Morphology Unremarkable Prothrombin Time 11.3 SECONDS Prothromb Time International Ratio 1.1 Activated Partial Thromboplast Time 36.8 SECONDS Partial Thromboplastin Ratio 1.4 Sodium Level 140 mmol/L 139 mmol/L Potassium Level 3.9 mmol/L 3.8 mmol/L Chloride Level 106 mmol/L 107 mmol/L Carbon Dioxide Level 25 mmol/L 25 mmol/L Anion Gap 9.0 mmol/L 7.0 mmol/L Blood Urea Nitrogen 34 mg/dl 31 mg/dl Creatinine 1.50 mg/dl 1.30 mg/dl Est Creatinine Clear Calc Drug Dose 23.7 ml/min 26.0 ml/min Estimated GFR () 38.5 45.8 Estimated GFR (Non- 33.3 39.5 BUN/Creatinine Ratio 22.7 24.1 Random Glucose 114 mg/dl 107 mg/dl Calcium Level 8.8 mg/dl 8.8 mg/dl Total Bilirubin 0.3 mg/dl Direct Bilirubin < 0.1 mg/dl Aspartate Amino Transf (AST/SGOT) 12 U/L Alanine Aminotransferase (ALT/SGPT) 9 U/L Alkaline Phosphatase 86 U/L Total Creatine Kinase 97 U/L Creatine Kinase MB 0.7 ng/ml Creatine Kinase MB Ratio 0.7 Troponin I < 0.015 ng/ml Total Protein 6.3 gm/dl Albumin 2.4 gm/dl Thyroid Stimulating Hormone (TSH) 1.980 uIu/ml Urine Color YELLOW Urine Appearance CLEAR Urine pH 5.0 Urine Specific Rocky 1.020 Urine Protein NEG Urine Glucose (UA) NEG Urine Ketones NEG Urine Occult Blood NEG Urine Nitrite NEG Urine Bilirubin NEG Urine Urobilinogen NEG Urine Leukocyte Esterase NEG Urine WBC (Auto) 1-5 /hpf Urine RBC (Auto) 0-4 /hpf Urine Hyaline Casts (Auto) 1-5 /lpf Urine Epithelial Cells (Auto) >30 /lpf Urine Bacteria (Auto) NEG Assessment and Plan Ms. Mosley is a 76-year-old female t with locally invasive unresectable pancreatic cancer diagnosed December 2015 treated with gemcitabine and Abraxane. S/P some tumor ablation by a physician in [facility], S/ P radiation therapy to the lesion along with Xeloda. She presented with deconditioning, body aches, fall and GREGORY. GREGORY hold nephrotoxic IVF hydration Pancreatic cancer as above oncologist consult appreciated he recommended palliative/hospice consult pain control S/P fall at home PT/OT hip xray R/O fracture continue home meds DVT prophylaxis/heparin Coronary artery disease status post CABG/HTN Continue Plavix, Imdur, atenolol, hold losartan Neuropathy Continue gabapentin DO NOT RESUSCITATE
[2016-11-26] MEDS: SODIUM CHLORIDE 0.9% 1000ML 1,000 ML IV SCH (12:26)
[2016-11-26] MEDS: ACETAMINOPHEN 325 MG TAB PO PRN (16:07)
[2016-11-26] MEDS ORDERED: NURSING VERBAL MED ORDER ONE (20:00)
[2016-11-26] MEDS: LOSARTAN POTASSIUM 25 MG TAB PO SCH (21:00)
--- NOTE | 2016-11-26 21:07 | DIAGNOSTIC IMAGING REPORT ---
PELVIS/BILATERAL HIP 2 VIEWS CLINICAL HISTORY: Pain following fall. COMPARISON STUDY: CT of the abdomen and pelvis November 19, 2016. FINDINGS: The sacroiliac joints and symphysis pubis are intact. There is no acute fracture within the pelvis or hips. Extensive vascular calcification is present. IMPRESSION: No acute fracture within the pelvis or hips. Electronically signed by: Eyal Bautista M.D. 11/26/2016 9:06 PM Dictated Date/Time: 11/26/2016 9:05 PM
[2016-11-27] VITALS (7 sets, daily range): BP systolic 138–166; BP diastolic 68–75; PULSE 64–89; TEMP 36.4–38.9; O2SAT 94–98
[2016-11-27] MEDS: SODIUM CHLORIDE 0.9% 1000ML 1,000 ML IV SCH ×2 (01:17→14:04)
[2016-11-27] MEDS: HYDROmorphone INJ 0.5 MG/0.5 ML SYR IV PRN ×3 (03:51→16:35)
[2016-11-27 05:37] LABS: EOS % 0.7 %; HEMATOCRIT 28.2 % (37-47); IG% 0.2 %; LYMPH % 11.7 %; LYMPH ABS # 0.64 K/uL (1.2-3.4); MEAN CELL VOLUME 84.7 fL (80-100); MEAN CORPUSCULAR HEMOGLOBIN 26.1 pg (25-34); MEAN CORPUSCULAR HGB CONC 30.9 g/dl (32-36); MEAN PLATELET VOLUME 9.9 fL (7.4-10.4); MONO % 10.1 %; NEUT % 77.3 %; PLATELET COUNT 104 K/uL (130-400); RED BLOOD COUNT 3.33 M/uL (4.2-5.4); WHITE BLOOD COUNT 5.47 K/uL (4.8-10.8)
[2016-11-27 06:02] LABS: BUN/CREATININE RATIO 23.2 (10-20); CALCIUM 8.4 mg/dl (8.5-10.1); CREATININE 1.1 mg/dl (0.60-1.20); MAGNESIUM 1.9 mg/dl (1.8-2.4); POTASSIUM 3.7 mmol/L (3.5-5.1)
[2016-11-27 06:05] LABS: ALB/GLOB RATIO 0.6 (0.9-2); PHOSPHORUS 2.5 mg/dl (2.5-4.9)
[2016-11-27 06:23] LABS: COMPLETE YES
[2016-11-27] MEDS: ISOSORBIDE MONONITRATE 60 MG TABCR PO SCH (07:58)
[2016-11-27] MEDS: PANTOprazole SOD 40 MG TAB PO SCH (07:58)
[2016-11-27] MEDS: XELODA~ORDER AWAITING ACTION SCH ×3 (07:58→23:46)
[2016-11-27] MEDS: GABAPENTIN 100 MG CAP PO SCH ×2 (07:58→20:40)
[2016-11-27] MEDS: CLOPIDOGREL BISULFATE 75 MG TAB PO SCH (07:58)
[2016-11-27] MEDS: METOCLOPRAMIDE HCL 10 MG TAB PO SCH ×4 (07:59→20:39)
[2016-11-27] MEDS: CHECK FENTANYL PATCH PLACEMENT SCH ×3 (07:59→23:46)
--- NOTE | 2016-11-27 08:22 | Clinical Documentation Query ---
CLINICAL DOCUMENTATION QUERY QUERY 1 OF 2 76-year-old female with a past medical history of coronary artery disease status post CABG, hypertension, pancreatic cancer currently undergoing chemotherapy presented to the ER with complaints of weakness started about 2 days ago. In your clinical opinion is this patient being managed for: (x ) Anemia due to antineoplastic chemotherapy ( ) Not Agree ( ) Other explanation of clinical findings (Please Explain) ( ) Unable to determine (Please Define) ( ) Need to Discuss The medical record reflects the following clinical findings, treatment, and risk factors. Clinical Indicators:Pancreatic cancer, s/p chemotherapy, thrombocytopenia Treatment Type/Cross and transfused RBCs, CBC Risk Factors: Age, weakness, frequent falls, Pancreatic ca, s/p chemotherapy QUERY 2 OF 2 In your clinical opinion is this patient being managed for: ( x ) Severe protein-calorie malnutrition ( ) Not Agree ( ) Other explanation of clinical findings (Please Explain) ( ) Unable to determine (Please Define) ( ) Need to Discuss The medical record reflects the following clinical findings, treatment, and risk factors. Clinical Indicators: > 20% weight loss over 1 year (73.5 kg to 52.8 kg), decreased appetite/fluid intake, GREGORY, s/p chemotherapy, increased weakness Treatment:IV hydration, dietary consult, I&Os, daily weights Risk Factors:Age, pancreatic ca, GREGORY, decreased appetite, severe weight loss Please clarify and document your clinical opinion in the progress notes and discharge summary. Terms such as "probable", "suspected", "likely", "questionable", "possible", or "still to be ruled out" are acceptable. IF IN AGREEMENT, YOU MUST DOCUMENT ABOVE DIAGNOSTIC STATEMENT IN DAILY PROGRESS NOTES AND DISCHARGE SUMMARY. This document is not part of the patient's record. Thank You, Camila Sheriff RN [phone]
--- NOTE | 2016-11-27 11:07 | Hematology/Oncology Prog Note ---
Hematology/Onc Progress Note Date of Service Nov 27, 2016. Diagnoses Locally advanced pancreatic carcinoma Declining performance status Medications Medications Administered Medications (Trade) Dose Ordered Sig/Serina Route Start Time Stop Time Status Last Admin Dose Admin Sodium Chloride 500 ml @ 999 mls/hr Q31M STAT IV 11/26/16 02:19 11/26/16 02:49 DC 11/26/16 02:19 999 MLS/HR Sodium Chloride 1,000 ml @ 200 mls/hr Q5H STAT IV 11/26/16 02:19 11/26/16 04:52 DC 11/26/16 03:04 200 MLS/HR Acetaminophen (Tylenol Tab) 650 mg Q4H PRN PO 11/26/16 03:30 12/26/16 03:29 11/26/16 16:07 650 MG Atenolol (Tenormin Tab) 50 mg QAM PO 11/26/16 08:00 12/26/16 08:59 11/27/16 07:58 50 MG Clopidogrel Bisulfate (plAVix TAB) 75 mg DAILY PO 11/26/16 08:00 12/26/16 08:59 11/27/16 07:58 75 MG Gabapentin (Neurontin Cap) 100 mg QAM PO 11/26/16 08:00 12/26/16 08:59 11/27/16 07:58 100 MG Gabapentin (Neurontin Cap) 200 mg QPM PO 11/26/16 21:00 12/26/16 20:59 11/26/16 20:58 200 MG Isosorbide Mononitrate (Imdur Ext Rel Tab) 60 mg QAM PO 11/26/16 08:00 12/26/16 08:59 11/27/16 07:58 60 MG Metoclopramide HCl (Reglan Tab) 10 mg QID PO 11/26/16 08:00 12/26/16 08:59 11/27/16 07:59 10 MG Pantoprazole Sodium (Protonix Tab) 40 mg QAM PO 11/26/16 08:00 12/26/16 08:59 11/27/16 07:58 40 MG Hydromorphone HCl (Dilaudid Inj) 0.5 mg NOW STAT IV 11/26/16 03:31 11/26/16 03:44 DC 11/26/16 04:08 0.5 MG Hydromorphone HCl (Dilaudid Inj) 0.5 mg Q6H PRN IV 11/26/16 03:45 11/26/16 19:56 DC 11/26/16 19:50 0.5 MG Fentanyl (Duragesic Patch) 100 mcg Q3D TD 11/26/16 08:00 12/10/16 07:59 11/26/16 08:01 100 MCG Miscellaneous (Fentanyl Patch Remove & Waste) 1 ea Q3D N/A 11/26/16 07:59 12/26/16 07:58 11/26/16 08:00 1 EA Miscellaneous Information (Check Fentanyl Patch Placement) 1 ea QS N/A 11/26/16 08:00 12/26/16 07:59 11/27/16 07:59 1 EA Heparin Sodium (Porcine) (Heparin 100 Unit/ml 5ml Flush) 5 ml PRN PRN IV 11/26/16 06:00 12/26/16 05:59 11/26/16 06:21 5 ML Sodium Chloride 1,000 ml @ 75 mls/hr [id number] IV 11/26/16 12:00 12/26/16 11:59 11/27/16 01:17 75 MLS/HR Hydromorphone HCl (Dilaudid Inj) 0.5 mg Q2H PRN IV 11/26/16 20:00 12/10/16 19:59 11/27/16 08:03 0.5 MG Subjective Continues to be very weak. Needs help in order to go to the bathroom Review of Systems: Constitutional: Negative for night sweats, or fever Eyes: Negative for event change of vision ENT: Negative for epistaxis, nasal discharge, sore throat, or deafness Cardiovascular: Negative for chest pain, palpitations, dizziness, diaphoresis Respiratory: Negative for new shortness of breath,hemoptysis, or purulent cough Gastrointestinal: Negative for diarrhea, hematemesis, melena, nausea, vomiting , or dyspepsia Integumentary (skin): Negative for rash or jaundice discoloration Genitourinary: Negative for urinary frequency, hematuria, or dysuria Neurological: Negative for weakness, seizure activity, headache, or dizziness Lymphatic/Hematologic: Negative for petechiae, bleeding or new adenopathy Musculoskeletal: Negative for new joint or back pain Allergic/Immunologic: Negative for unusual rash or pruritis. Vital Signs Vital Signs Past 12 Hours Date Time Temp Pulse Resp B/P (MAP) Pulse Ox O2 Delivery O2 Flow Rate FiO2 11/27/16 10:00 Room Air 11/27/16 07:58 36.7 69 18 164/70 (101) 96 Room Air 11/27/16 04:15 36.7 89 18 166/68 (100) 98 Room Air 11/27/16 00:20 Room Air 11/26/16 23:15 36.4 54 18 106/49 (68) 96 Room Air Physical Exam Constitutional: vitals are stable. Seems to be somewhat forgetful. Appears quite weak Eyes: Eyes are SHELBIE EOMI without conjuctival erythema or icterus. ENT: External examination was negative for masses. Neck: Negative for masses or palpable thyromegaly Respiratory: Lung sounds were generally clear bilaterally Cardiovascular: Heart was RRR without significant murmur, gallops aoe rubs Gastrointestinal: No palpable hepatic or splenomegaly. The abdomen was soft with normal bowel sounds. Lymphatic system: there was no palpable peripheral lymphadenopathy Musculoskeletal System: The musculoskeletal system seemed concordant with age. Skin: The skin was negative for jaundice. Neurologic exam: The exam was negative for any focal findings. Deep tendon reflexes were equal and symmetrical. Psychiatric exam: Was essentially negative with normal mood and effect. Extremities: Negative for significant edema, erythema Laboratory Last 24 Hours Test 11/27/16 05:07 White Blood Count 5.47 K/uL Red Blood Count 3.33 M/uL Hemoglobin 8.7 g/dL Hematocrit 28.2 % Mean Corpuscular Volume 84.7 fL Mean Corpuscular Hemoglobin 26.1 pg Mean Corpuscular Hemoglobin Concent 30.9 g/dl Platelet Count 104 K/uL Mean Platelet Volume 9.9 fL Neutrophils (%) (Auto) 77.3 % Lymphocytes (%) (Auto) 11.7 % Monocytes (%) (Auto) 10.1 % Eosinophils (%) (Auto) 0.7 % Basophils (%) (Auto) 0.0 % Neutrophils # (Auto) 4.23 K/uL Lymphocytes # (Auto) 0.64 K/uL Monocytes # (Auto) 0.55 K/uL Eosinophils # (Auto) 0.04 K/uL Basophils # (Auto) 0.00 K/uL RDW Standard Deviation 59.8 fL RDW Coefficient of Variation 19.2 % Immature Granulocyte % (Auto) 0.2 % Immature Granulocyte # (Auto) 0.01 K/uL Red Blood Cell Morphology Unremarkable Sodium Level 139 mmol/L Potassium Level 3.7 mmol/L Chloride Level 109 mmol/L Carbon Dioxide Level 24 mmol/L Anion Gap 6.0 mmol/L Blood Urea Nitrogen 26 mg/dl Creatinine 1.10 mg/dl Est Creatinine Clear Calc Drug Dose 30.8 ml/min Estimated GFR () 56.1 Estimated GFR (Non- 48.4 BUN/Creatinine Ratio 23.2 Random Glucose 96 mg/dl Calcium Level 8.4 mg/dl Phosphorus Level 2.5 mg/dl Magnesium Level 1.9 mg/dl Total Bilirubin 0.5 mg/dl Aspartate Amino Transf (AST/SGOT) 12 U/L Alanine Aminotransferase (ALT/SGPT) 9 U/L Alkaline Phosphatase 85 U/L Total Protein 5.8 gm/dl Albumin 2.1 gm/dl Globulin 3.7 gm/dl Albumin/Globulin Ratio 0.6 Assessment & Plan Locally advanced pancreatic carcinoma status post therapy and now declining performance status. No more systemic therapy is planned. Yesterday I spoke with her about hospice. I understand the palliative care will be meeting with the son. I do not believe that she will be able to live independently or alone going forward. I told her this today. Supportive care continues
--- NOTE | 2016-11-27 11:25 | Palliative Care Consultation ---
Consultation Date of Consultation: Nov 27, 2016. Requesting Physician: Dr. Lianne Wilson Attending Physician: Dr. Lianne Wilson Reason for Consultation: Goals of care History of Present Illness This 76 year old female patient with a past medical history of coronary artery disease s/p CABG, hypertension, pancreatic cancer currently undergoing chemotherapy presented to the ED with complaints of weakness and a fall. Admitted with GREGORY and declining performance status. Heme/onc in to see patient and discussed/recommended palliative/hospice care given her worsening condition. Palliative care consulted. I met with patient this morning. She is groggy, somewhat disoriented this morning which is not her norm. She has had two doses of 0.5mg IV Dilaudid since 0 this morning- could be why she is a little confused. Also still has 100mcg/ hr fentanyl patch on. Patient could not recall much of her conversation with Dr. Otto yesterday, but when i recapped the note he documented, she agreed that her goal is now for comfort/hospice. I waited to continue further conversation until her son, Tunde, was present. I did then meet with patient's son, Tunde. He confirmed that the goal is for comfort and for patient to be on hospice. Tunde states that 22/10 care in the patient's home is not feasible as she lives alone. He is asking about SNFs in the area and would like to pursue that route. While patient is not really able to make decisions at this time, Tunde thinks she will be okay with this. Past Medical/Surgical History Medical History: Anemia Thrombocytopenia CAD s/p CABG Htn Pancreatic cancer Social History Smoking Status: Never Smoker History of Alcohol Use: No Drug Use: none Marital Status: single Occupation Status: retired Review of Systems Constitutional: + weakness ENT: No trouble swallowing Respiratory: No cough, No shortness of breath Cardiac: No chest pain, No edema Abdomen: + pain, No nausea, No vomiting Musculoskeletal: + problem reported (spasms of arms) Female : No problem reported Neurologic: + memory loss Psychiatric: No depression symptoms, No anxiety Allergies Coded Allergies: Adhesives (Verified Allergy, Unknown, RASH, 11/26/16) Metaxalone (Verified Allergy, Unknown, RASH, 11/26/16) Oxycodone (Verified Allergy, Unknown, RASH, 11/26/16) Tramadol (Verified Allergy, Unknown, RASH, 11/26/16) Morphine (Verified Adverse Reaction, Intermediate, DIFFICULTY URINATING, SEVERE SWELLING, 11/26/16) Medications Current Inpatient Medications Medications (Trade) Dose Ordered Sig/Serina Route Start Time Stop Time Status Last Admin Dose Admin Acetaminophen (Tylenol Tab) 650 mg Q4H PRN PO 11/26/16 03:30 12/26/16 03:29 11/26/16 16:07 650 MG Polyethylene (Miralax Powder Packet) 17 gm DAILY PRN PO 11/26/16 03:30 12/26/16 03:29 Ondansetron HCl (Zofran Inj) 4 mg Q6H PRN IV 11/26/16 03:30 12/26/16 03:29 Atenolol (Tenormin Tab) 50 mg QAM PO 11/26/16 08:00 12/26/16 08:59 11/27/16 07:58 50 MG Clopidogrel Bisulfate (plAVix TAB) 75 mg DAILY PO 11/26/16 08:00 12/26/16 08:59 11/27/16 07:58 75 MG Gabapentin (Neurontin Cap) 100 mg QAM PO 11/26/16 08:00 12/26/16 08:59 11/27/16 07:58 100 MG Gabapentin (Neurontin Cap) 200 mg QPM PO 11/26/16 21:00 12/26/16 20:59 11/26/16 20:58 200 MG Isosorbide Mononitrate (Imdur Ext Rel Tab) 60 mg QAM PO 11/26/16 08:00 12/26/16 08:59 11/27/16 07:58 60 MG Losartan Potassium (coZAAR TAB) 25 mg HS PO 11/26/16 21:00 12/26/16 20:59 Metoclopramide HCl (Reglan Tab) 10 mg QID PO 11/26/16 08:00 12/26/16 08:59 11/27/16 07:59 10 MG Nitroglycerin (Nitrostat Tab) 0.4 mg UD PRN UT 11/26/16 03:45 12/26/16 03:44 Prochlorperazine Maleate (Compazine Tab) 10 mg Q6H PRN PO 11/26/16 03:45 12/26/16 03:44 Miscellaneous Information (Order Awaiting Action) 1 ea QS N/A 11/26/16 08:00 12/26/16 07:59 Pantoprazole Sodium (Protonix Tab) 40 mg QAM PO 11/26/16 08:00 12/26/16 08:59 11/27/16 07:58 40 MG Fentanyl (Duragesic Patch) 100 mcg Q3D TD 11/26/16 08:00 12/10/16 07:59 11/26/16 08:01 100 MCG Miscellaneous (Fentanyl Patch Remove & Waste) 1 ea Q3D N/A 11/26/16 07:59 12/26/16 07:58 11/26/16 08:00 1 EA Miscellaneous Information (Check Fentanyl Patch Placement) 1 ea QS N/A 11/26/16 08:00 12/26/16 07:59 11/27/16 07:59 1 EA Heparin Sodium (Porcine) (Heparin 100 Unit/ml 5ml Flush) 5 ml PRN PRN IV 11/26/16 06:00 12/26/16 05:59 11/26/16 06:21 5 ML Sodium Chloride 1,000 ml @ 75 mls/hr [id number] IV 11/26/16 12:00 12/26/16 11:59 11/27/16 01:17 75 MLS/HR Hydromorphone HCl (Dilaudid Inj) 0.5 mg Q2H PRN IV 11/26/16 20:00 12/10/16 19:59 11/27/16 08:03 0.5 MG Physical Exam Date Time Temp Pulse Resp B/P (MAP) Pulse Ox O2 Delivery O2 Flow Rate FiO2 11/27/16 10:00 Room Air 11/27/16 07:58 36.7 69 18 164/70 (101) 96 Room Air 11/27/16 04:15 36.7 89 18 166/68 (100) 98 Room Air 11/27/16 00:20 Room Air 11/26/16 23:15 36.4 54 18 106/49 (68) 96 Room Air 11/26/16 20:58 51 98/52 (67) 11/26/16 20:05 Room Air 11/26/16 19:51 36.4 54 18 91/49 96 11/26/16 18:51 36.6 60 20 92/50 11/26/16 17:49 36.6 64 20 93/53 11/26/16 17:20 36.7 60 18 100/60 94 11/26/16 17:04 36.7 65 18 103/52 94 11/26/16 16:46 36.8 66 18 121/67 92 0.0 11/26/16 16:00 Room Air 11/26/16 15:43 37.6 69 16 123/58 (79) 96 Room Air 11/26/16 11:56 37.4 73 18 157/73 (101) 96 Room Air General Appearance: no apparent distress ENT: hearing grossly normal Neck: supple, no JVD Respiratory: no respiratory distress, no accessory muscle use, + decreased breath sounds Cardiovascular: regular rate, rhythm, no edema, + normal peripheral pulses Abdomen: normal bowel sounds, + tenderness Neurologic/Psychiatric: alert, + disoriented Laboratory Results Last 24 Hours Test 11/27/16 05:07 White Blood Count 5.47 K/uL Red Blood Count 3.33 M/uL Hemoglobin 8.7 g/dL Hematocrit 28.2 % Mean Corpuscular Volume 84.7 fL Mean Corpuscular Hemoglobin 26.1 pg Mean Corpuscular Hemoglobin Concent 30.9 g/dl Platelet Count 104 K/uL Mean Platelet Volume 9.9 fL Neutrophils (%) (Auto) 77.3 % Lymphocytes (%) (Auto) 11.7 % Monocytes (%) (Auto) 10.1 % Eosinophils (%) (Auto) 0.7 % Basophils (%) (Auto) 0.0 % Neutrophils # (Auto) 4.23 K/uL Lymphocytes # (Auto) 0.64 K/uL Monocytes # (Auto) 0.55 K/uL Eosinophils # (Auto) 0.04 K/uL Basophils # (Auto) 0.00 K/uL RDW Standard Deviation 59.8 fL RDW Coefficient of Variation 19.2 % Immature Granulocyte % (Auto) 0.2 % Immature Granulocyte # (Auto) 0.01 K/uL Red Blood Cell Morphology Unremarkable Sodium Level 139 mmol/L Potassium Level 3.7 mmol/L Chloride Level 109 mmol/L Carbon Dioxide Level 24 mmol/L Anion Gap 6.0 mmol/L Blood Urea Nitrogen 26 mg/dl Creatinine 1.10 mg/dl Est Creatinine Clear Calc Drug Dose 30.8 ml/min Estimated GFR () 56.1 Estimated GFR (Non- 48.4 BUN/Creatinine Ratio 23.2 Random Glucose 96 mg/dl Calcium Level 8.4 mg/dl Phosphorus Level 2.5 mg/dl Magnesium Level 1.9 mg/dl Total Bilirubin 0.5 mg/dl Aspartate Amino Transf (AST/SGOT) 12 U/L Alanine Aminotransferase (ALT/SGPT) 9 U/L Alkaline Phosphatase 85 U/L Total Protein 5.8 gm/dl Albumin 2.1 gm/dl Globulin 3.7 gm/dl Albumin/Globulin Ratio 0.6 Assessment & Plan Palliative Performance Scale: 40 % Problem list: Weakness Pain, abdominal Falls Pancreatic cancer Anemia Declining performance status Goals of care (Z51.5) Palliative care recs: discussed with patient and son, Tunde. -Goal is for comfort. Both patient and son verbalized understanding that she will not be receiving further chemo. -Plan for hospice at a facility. Patient could be "skilled" first, so will need PT/OT ordered. -Will wait until tomorrow to see what her pain medication needs are over 24 hours. Likely will increase fentanyl patch to 125mcg/hr with PRN PO Dilaudid. -Patient denies N/V/D or SOB. -Does have weakness. Had one unit PRBCs, strength has not improved from yesterday to today. Onc suggested small dose of prednisone for appetite and vigor. -newspaper library manager to follow for discharge planning. -Discussed with son doing a POLST before discharge, he is agreeable. Thank you kindly for this consult. I will follow.
[2016-11-27] MEDS: LOSARTAN POTASSIUM 25 MG TAB PO SCH (20:40)
--- NOTE | 2016-11-27 20:50 | Progress Note ---
Subjective Date of Service: Nov 27, 2016. Subjective Pt evaluation today including: conversation w/ patient, conversation w/ family , physical exam, chart review, lab review, review of inpatient medication list Problem List Medical Problems: (1) Abdominal pain Status: Acute (2) GREGORY (acute kidney injury) Status: Acute (3) Anemia Status: Acute (4) Dehydration Status: Acute (5) Diffuse abdominal pain Status: Acute (6) Fall Status: Acute (7) Precordial chest pain Status: Acute (8) Thrombocytopenia Status: Acute (9) Weakness Status: Acute Review of Systems Constitutional: No see HPI, No fever, No chills, No sweats, No weight loss, No weakness, No fatigue, No problem reported Eyes: No see HPI, No worsening of vision, No eye pain, No redness, No discharge , No diplopia, No problem reported ENT: No see HPI, No hearing loss, No unusual epistaxis, No nasal symptoms, No sore throat, No tinnitus, No dental problems, No trouble swallowing, No problem reported Respiratory: No see HPI, No cough, No sputum, No wheezing, No shortness of breath, No dyspnea on exertion, No dyspnea at rest, No hemoptysis, No problem reported Cardiac: No see HPI, No chest pain, No orthopnea, No PND, No edema, No claudication, No palpitations, No problem reported Abdomen: No see HPI, No pain, No nausea, No vomiting, No diarrhea, No constipation, No GI bleeding, No problem reported Musculoskeletal: No see HPI, No joint pain, No muscle pain, No swelling, No calf pain, No problem reported Female : No see HPI, No dysuria, No urinary frequency, No hematuria, No incontinence, No abnormal vaginal bleeding, No vaginal discharge, No problem reported Neurologic: No see HPI, No memory loss, No paralysis, No weakness, No numbness/ tingling, No vertigo, No balance problems, No problem reported Psychiatric: No see HPI, No depression symptoms, No anhedonism, No anxiety, No insomnia, No substance abuse, No problem reported Heme: No see HPI, No abnormal bleeding/bruising, No clotting problems, No swollen lymph nodes, No night sweats, No problem reported Endo: No see HPI, No fatigue, No excessive thirst, No excessive urination, No problem reported Skin: No see HPI, No rash, No itch, No new/changing skin lesions, No color change, No bleeding, No problem reported Objective Vital Signs Date Time Temp Pulse Resp B/P (MAP) Pulse Ox O2 Delivery O2 Flow Rate FiO2 11/27/16 16:15 37.1 64 18 138/74 (95) 96 Room Air 11/27/16 16:00 94 Room Air 0.0 11/27/16 12:12 36.4 73 20 138/75 (96) 94 Room Air 11/27/16 10:00 Room Air 11/27/16 07:58 36.7 69 18 164/70 (101) 96 Room Air 11/27/16 04:15 36.7 89 18 166/68 (100) 98 Room Air 11/27/16 00:20 Room Air 11/26/16 23:15 36.4 54 18 106/49 (68) 96 Room Air 11/26/16 20:58 51 98/52 (67) Physical Exam General Appearance: WD/WN, no apparent distress Eyes: normal inspection, EOMI ENT: normal ENT inspection, hearing grossly normal Neck: supple Respiratory/Chest: chest non-tender, lungs clear, normal breath sounds, no respiratory distress, no accessory muscle use Cardiovascular: regular rate, rhythm, no edema, no gallop, no JVD, no murmur Abdomen: normal bowel sounds, non tender, soft, no organomegaly Extremities: normal range of motion, non-tender, normal inspection, no pedal edema 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, no motor/sensory deficits, alert, normal mood/affect, oriented x 3 Skin: normal color, warm/dry, no rash Laboratory Results Last 24 Hours Test 11/27/16 05:07 White Blood Count 5.47 K/uL Red Blood Count 3.33 M/uL Hemoglobin 8.7 g/dL Hematocrit 28.2 % Mean Corpuscular Volume 84.7 fL Mean Corpuscular Hemoglobin 26.1 pg Mean Corpuscular Hemoglobin Concent 30.9 g/dl Platelet Count 104 K/uL Mean Platelet Volume 9.9 fL Neutrophils (%) (Auto) 77.3 % Lymphocytes (%) (Auto) 11.7 % Monocytes (%) (Auto) 10.1 % Eosinophils (%) (Auto) 0.7 % Basophils (%) (Auto) 0.0 % Neutrophils # (Auto) 4.23 K/uL Lymphocytes # (Auto) 0.64 K/uL Monocytes # (Auto) 0.55 K/uL Eosinophils # (Auto) 0.04 K/uL Basophils # (Auto) 0.00 K/uL RDW Standard Deviation 59.8 fL RDW Coefficient of Variation 19.2 % Immature Granulocyte % (Auto) 0.2 % Immature Granulocyte # (Auto) 0.01 K/uL Red Blood Cell Morphology Unremarkable Sodium Level 139 mmol/L Potassium Level 3.7 mmol/L Chloride Level 109 mmol/L Carbon Dioxide Level 24 mmol/L Anion Gap 6.0 mmol/L Blood Urea Nitrogen 26 mg/dl Creatinine 1.10 mg/dl Est Creatinine Clear Calc Drug Dose 30.8 ml/min Estimated GFR () 56.1 Estimated GFR (Non- 48.4 BUN/Creatinine Ratio 23.2 Random Glucose 96 mg/dl Calcium Level 8.4 mg/dl Phosphorus Level 2.5 mg/dl Magnesium Level 1.9 mg/dl Total Bilirubin 0.5 mg/dl Aspartate Amino Transf (AST/SGOT) 12 U/L Alanine Aminotransferase (ALT/SGPT) 9 U/L Alkaline Phosphatase 85 U/L Total Protein 5.8 gm/dl Albumin 2.1 gm/dl Globulin 3.7 gm/dl Albumin/Globulin Ratio 0.6 Assessment and Plan Ms. Mosley is a 76-year-old female t with locally invasive unresectable pancreatic cancer diagnosed December 2015 treated with gemcitabine and Abraxane. S/P some tumor ablation by a physician in [facility], S/ P radiation therapy to the lesion along with Xeloda. She presented with deconditioning, body aches, fall and GREGORY. GREGORY, resolved hold nephrotoxic IVF hydration Pancreatic cancer as above oncologist consult appreciated he recommended palliative/hospice consult pain control S/P fall at home PT/OT hip xray R/O fracture continue home meds DVT prophylaxis/heparin Coronary artery disease status post CABG/HTN Continue Plavix, Imdur, atenolol, hold losartan Neuropathy Continue gabapentin plan to discharge to rehab then to hospice DO NOT RESUSCITATE
[2016-11-28] VITALS (7 sets, daily range): BP systolic 112–155; BP diastolic 62–87; PULSE 64–67; TEMP 36.5–38.5; O2SAT 90–97
[2016-11-28] MEDS: SODIUM CHLORIDE 0.9% 1000ML 1,000 ML IV SCH ×2 (03:27→16:47)
[2016-11-28 06:33] LABS: HEMATOCRIT 26.4 % (37-47); MEAN CELL VOLUME 83.3 fL (80-100); MEAN CORPUSCULAR HEMOGLOBIN 26.2 pg (25-34); MEAN CORPUSCULAR HGB CONC 31.4 g/dl (32-36); MEAN PLATELET VOLUME 10.5 fL (7.4-10.4); PLATELET COUNT 95 K/uL (130-400); RED BLOOD COUNT 3.17 M/uL (4.2-5.4); WHITE BLOOD COUNT 4.72 K/uL (4.8-10.8)
[2016-11-28 07:05] LABS: BUN/CREATININE RATIO 27.1 (10-20); CALCIUM 8.4 mg/dl (8.5-10.1); CREATININE 0.75 mg/dl (0.60-1.20); MAGNESIUM 1.7 mg/dl (1.8-2.4); PHOSPHORUS 2.3 mg/dl (2.5-4.9); POTASSIUM 3.3 mmol/L (3.5-5.1)
[2016-11-28 07:19] LABS: ANISOCYTOSIS PRESENT; COMPLETE YES; EOS % 0.4 %; IG% 0.4 %; LARGE PLATELETS 1+; LYMPH % 12.1 %; LYMPH ABS # 0.57 K/uL (1.2-3.4); MONO % 9.7 %; NEUT % 77.4 %
[2016-11-28] MEDS: XELODA~ORDER AWAITING ACTION SCH ×2 (08:00→16:00)
[2016-11-28] MEDS: GABAPENTIN 100 MG CAP PO SCH ×2 (08:04→20:51)
[2016-11-28] MEDS: METOCLOPRAMIDE HCL 10 MG TAB PO SCH ×4 (08:04→20:51)
[2016-11-28] MEDS: CLOPIDOGREL BISULFATE 75 MG TAB PO SCH (08:04)
[2016-11-28] MEDS: ISOSORBIDE MONONITRATE 60 MG TABCR PO SCH (08:04)
[2016-11-28] MEDS: PANTOprazole SOD 40 MG TAB PO SCH (08:04)
[2016-11-28] MEDS: CHECK FENTANYL PATCH PLACEMENT SCH ×2 (08:05→16:16)
[2016-11-28] MEDS: ACETAMINOPHEN 325 MG TAB PO PRN (11:07)
[2016-11-28] MEDS: HYDROmorphone INJ 0.5 MG/0.5 ML SYR IV PRN (11:07)
--- NOTE | 2016-11-28 11:15 | Progress Note ---
Subjective Date of Service: Nov 28, 2016. Subjective Pt evaluation today including: conversation w/ patient, physical exam, chart review, lab review, review of inpatient medication list Problem List Medical Problems: (1) Abdominal pain Status: Acute (2) GREGORY (acute kidney injury) Status: Acute (3) Anemia Status: Acute (4) Dehydration Status: Acute (5) Diffuse abdominal pain Status: Acute (6) Fall Status: Acute (7) Precordial chest pain Status: Acute (8) Thrombocytopenia Status: Acute (9) Weakness Status: Acute Review of Systems Constitutional: No see HPI, No fever, No chills, No sweats, No weight loss, No weakness, No fatigue, No problem reported Eyes: No see HPI, No worsening of vision, No eye pain, No redness, No discharge , No diplopia, No problem reported ENT: No see HPI, No hearing loss, No unusual epistaxis, No nasal symptoms, No sore throat, No tinnitus, No dental problems, No trouble swallowing, No problem reported Respiratory: No see HPI, No cough, No sputum, No wheezing, No shortness of breath, No dyspnea on exertion, No dyspnea at rest, No hemoptysis, No problem reported Cardiac: No see HPI, No chest pain, No orthopnea, No PND, No edema, No claudication, No palpitations, No problem reported Abdomen: No see HPI, No pain, No nausea, No vomiting, No diarrhea, No constipation, No GI bleeding, No problem reported Musculoskeletal: No see HPI, No joint pain, No muscle pain, No swelling, No calf pain, No problem reported Neurologic: No see HPI, No memory loss, No paralysis, No weakness, No numbness/ tingling, No vertigo, No balance problems, No problem reported Psychiatric: No see HPI, No depression symptoms, No anhedonism, No anxiety, No insomnia, No substance abuse, No problem reported Heme: No see HPI, No abnormal bleeding/bruising, No clotting problems, No swollen lymph nodes, No night sweats, No problem reported Endo: No see HPI, No fatigue, No excessive thirst, No excessive urination, No problem reported Skin: No see HPI, No rash, No itch, No new/changing skin lesions, No color change, No bleeding, No problem reported Objective Vital Signs Date Time Temp Pulse Resp B/P (MAP) Pulse Ox O2 Delivery O2 Flow Rate FiO2 8/30/17 10:59 Room Air 11/28/16 08:36 36.5 64 18 136/87 (103) 97 Room Air 11/28/16 04:44 36.8 67 18 147/64 (91) 95 Room Air 11/28/16 00:34 37.1 65 18 112/62 (79) 96 Room Air 11/28/16 00:01 Room Air 0.0 11/27/16 22:39 36.6 11/27/16 20:58 38.9 76 18 151/70 (97) 94 11/27/16 16:15 37.1 64 18 138/74 (95) 96 Room Air 11/27/16 16:00 94 Room Air 0.0 11/27/16 12:12 36.4 73 20 138/75 (96) 94 Room Air Physical Exam General Appearance: WD/WN, no apparent distress Eyes: normal inspection, EOMI ENT: normal ENT inspection, hearing grossly normal Neck: supple, no adenopathy Respiratory/Chest: chest non-tender, lungs clear, normal breath sounds, no respiratory distress Cardiovascular: regular rate, rhythm, no edema, no gallop, no JVD Abdomen: normal bowel sounds, non tender, soft, no organomegaly Extremities: normal range of motion, non-tender, normal inspection, no pedal edema 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, no motor/sensory deficits, alert, normal mood/affect, oriented x 3 Skin: normal color, warm/dry, no rash Laboratory Results Last 24 Hours Test 11/28/16 05:41 White Blood Count 4.72 K/uL Red Blood Count 3.17 M/uL Hemoglobin 8.3 g/dL Hematocrit 26.4 % Mean Corpuscular Volume 83.3 fL Mean Corpuscular Hemoglobin 26.2 pg Mean Corpuscular Hemoglobin Concent 31.4 g/dl Platelet Count 95 K/uL Mean Platelet Volume 10.5 fL Neutrophils (%) (Auto) 77.4 % Lymphocytes (%) (Auto) 12.1 % Monocytes (%) (Auto) 9.7 % Eosinophils (%) (Auto) 0.4 % Basophils (%) (Auto) 0.0 % Neutrophils # (Auto) 3.65 K/uL Lymphocytes # (Auto) 0.57 K/uL Monocytes # (Auto) 0.46 K/uL Eosinophils # (Auto) 0.02 K/uL Basophils # (Auto) 0.00 K/uL RDW Standard Deviation 59.8 fL RDW Coefficient of Variation 19.1 % Immature Granulocyte % (Auto) 0.4 % Immature Granulocyte # (Auto) 0.02 K/uL Large Platelets 1+ Anisocytosis PRESENT Sodium Level 142 mmol/L Potassium Level 3.3 mmol/L Chloride Level 111 mmol/L Carbon Dioxide Level 23 mmol/L Anion Gap 8.0 mmol/L Blood Urea Nitrogen 20 mg/dl Creatinine 0.75 mg/dl Est Creatinine Clear Calc Drug Dose 45.1 ml/min Estimated GFR () 89.1 Estimated GFR (Non- 76.9 BUN/Creatinine Ratio 27.1 Random Glucose 88 mg/dl Calcium Level 8.4 mg/dl Phosphorus Level 2.3 mg/dl Magnesium Level 1.7 mg/dl Assessment and Plan Ms. Mosley is a 76-year-old female t with locally invasive unresectable pancreatic cancer diagnosed December 2015 treated with gemcitabine and Abraxane. S/P some tumor ablation by a physician in [facility], S/ P radiation therapy to the lesion along with Xeloda. She presented with deconditioning, body aches, fall and GREGORY. Unfortunately spiked a fever today of 38.5. Possibly could be secondary to the cancer itself but as she has a port, we are prominently to send blood cultures one peripheral and one from the port. We'll also do urine analysis and urine culture. GREGORY, resolved hold nephrotoxic IVF hydration Pancreatic cancer as above oncologist consult appreciated he recommended palliative/hospice consult pain control S/P fall at home PT/OT hip xray R/O fracture continue home meds DVT prophylaxis/heparin Coronary artery disease status post CABG/HTN Continue Plavix, Imdur, atenolol, hold losartan Neuropathy Continue gabapentin plan to discharge to rehab then to hospice DO NOT RESUSCITATE
[2016-11-28] MEDS ORDERED: NURSING VERBAL MED ORDER ONE (13:00)
[2016-11-28] MEDS: BOOST BREEZE NUTRITION DRINK 1 BOX PO SCH (20:00)
[2016-11-28] MEDS: LOSARTAN POTASSIUM 25 MG TAB PO SCH (20:51)
[2016-11-28] MEDS: HYDROmorphone HCL 2 MG TAB PO PRN (20:52)
[2016-11-29] VITALS (8 sets, daily range): BP systolic 113–168; BP diastolic 65–79; PULSE 62–80; TEMP 36.3–37.1; O2SAT 92–96
[2016-11-29] MEDS: CHECK FENTANYL PATCH PLACEMENT SCH ×4 (00:27→23:47)
[2016-11-29] MEDS: HYDROmorphone HCL 2 MG TAB PO PRN ×3 (01:08→20:09)
[2016-11-29] MEDS: SODIUM CHLORIDE 0.9% 1000ML 1,000 ML IV SCH ×2 (05:51→20:05)
[2016-11-29 06:25] LABS: BUN/CREATININE RATIO 24.5 (10-20); CALCIUM 8.2 mg/dl (8.5-10.1); CREATININE 0.66 mg/dl (0.60-1.20); POTASSIUM 3.4 mmol/L (3.5-5.1)
[2016-11-29] MEDS: METOCLOPRAMIDE HCL 10 MG TAB PO SCH ×4 (07:09→20:05)
[2016-11-29] MEDS: BOOST BREEZE NUTRITION DRINK 1 BOX PO SCH (07:09)
[2016-11-29] MEDS: CLOPIDOGREL BISULFATE 75 MG TAB PO SCH (07:10)
[2016-11-29] MEDS: ISOSORBIDE MONONITRATE 60 MG TABCR PO SCH (07:10)
[2016-11-29] MEDS: PANTOprazole SOD 40 MG TAB PO SCH (07:10)
[2016-11-29] MEDS: GABAPENTIN 100 MG CAP PO SCH ×2 (07:11→20:05)
[2016-11-29] MEDS: FENTANYL PATCH REMOVE & WASTE SCH (07:11)
[2016-11-29] MEDS: XELODA~ORDER AWAITING ACTION SCH ×4 (07:22→23:47)
[2016-11-29] MEDS: FENTANYL 100 MCG/HR TDSY TD SCH (07:22)
[2016-11-29 07:39] LABS: URINE APPEARANCE CLEAR (CLEAR); URINE BILIRUBIN NEG (NEG); URINE COLOR YELLOW; URINE NITRITE NEG (NEG); URINE SPECIFIC GRAVITY 1.019 (1.000-1.030); UROBILINOGEN NEG (NEG)
[2016-11-29 07:47] LABS: MANUAL MICROSCOPIC REQUIRED? NO; REVIEW REQ? NO
[2016-11-29] MEDS ORDERED: NURSING VERBAL MED ORDER ONE (15:45)
[2016-11-29] MEDS ORDERED: POTASSIUM CHLORIDE 20 MEQ TABCR PO ONE (16:00)
--- NOTE | 2016-11-29 18:46 | Progress Note ---
Subjective Date of Service: Nov 29, 2016. Subjective Pt evaluation today including: conversation w/ patient, physical exam, chart review, lab review, review of inpatient medication list Problem List Medical Problems: (1) Abdominal pain Status: Acute (2) GREGORY (acute kidney injury) Status: Acute (3) Anemia Status: Acute (4) Dehydration Status: Acute (5) Diffuse abdominal pain Status: Acute (6) Fall Status: Acute (7) Precordial chest pain Status: Acute (8) Thrombocytopenia Status: Acute (9) Weakness Status: Acute Review of Systems Constitutional: No see HPI, No fever, No chills, No sweats, No weight loss, No weakness, No fatigue, No problem reported Eyes: No see HPI, No worsening of vision, No eye pain, No redness, No discharge , No diplopia, No problem reported ENT: No see HPI, No hearing loss, No unusual epistaxis, No nasal symptoms, No sore throat, No tinnitus, No dental problems, No trouble swallowing, No problem reported Respiratory: No see HPI, No cough, No sputum, No wheezing, No shortness of breath, No dyspnea on exertion, No dyspnea at rest, No hemoptysis, No problem reported Cardiac: No see HPI, No chest pain, No orthopnea, No PND, No edema, No claudication, No palpitations, No problem reported Abdomen: No see HPI, No pain, No nausea, No vomiting, No diarrhea, No constipation, No GI bleeding, No problem reported Musculoskeletal: No see HPI, No joint pain, No muscle pain, No swelling, No calf pain, No problem reported Neurologic: No see HPI, No memory loss, No paralysis, No weakness, No numbness/ tingling, No vertigo, No balance problems, No problem reported Psychiatric: No see HPI, No depression symptoms, No anhedonism, No anxiety, No insomnia, No substance abuse, No problem reported Heme: No see HPI, No abnormal bleeding/bruising, No clotting problems, No swollen lymph nodes, No night sweats, No problem reported Endo: No see HPI, No fatigue, No excessive thirst, No excessive urination, No problem reported Skin: No see HPI, No rash, No itch, No new/changing skin lesions, No color change, No bleeding, No problem reported Objective Vital Signs Date Time Temp Pulse Resp B/P (MAP) Pulse Ox O2 Delivery O2 Flow Rate FiO2 11/29/16 15:57 94 Room Air 11/29/16 14:59 36.9 69 18 148/73 (98) 94 Room Air 11/29/16 11:41 37.1 62 22 146/73 (97) 96 Room Air 11/29/16 08:01 36.3 80 20 168/77 (107) 96 Room Air 11/29/16 08:00 93 Room Air 0.0 11/29/16 04:45 37.0 73 20 137/65 (89) 93 Room Air 11/29/16 00:00 Room Air 11/28/16 23:13 36.8 65 16 145/68 (93) 97 Room Air 11/28/16 20:24 36.6 65 18 149/69 (95) 97 Room Air Physical Exam General Appearance: WD/WN, no apparent distress Eyes: normal inspection, EOMI ENT: normal ENT inspection, hearing grossly normal Neck: supple Respiratory/Chest: chest non-tender, lungs clear, normal breath sounds, no respiratory distress, no accessory muscle use Cardiovascular: regular rate, rhythm, no edema, no gallop, no JVD Abdomen: normal bowel sounds, non tender, soft, no organomegaly, no pulsatile mass Extremities: normal range of motion, non-tender, normal inspection 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, no motor/sensory deficits, alert, normal mood/affect, oriented x 3 Skin: normal color, warm/dry, no rash Laboratory Results Last 24 Hours Test 11/29/16 05:43 11/29/16 07:10 Sodium Level 139 mmol/L Potassium Level 3.4 mmol/L Chloride Level 110 mmol/L Carbon Dioxide Level 23 mmol/L Anion Gap 6.0 mmol/L Blood Urea Nitrogen 16 mg/dl Creatinine 0.66 mg/dl Est Creatinine Clear Calc Drug Dose 51.3 ml/min Estimated GFR () 98.8 Estimated GFR (Non- 85.2 BUN/Creatinine Ratio 24.5 Random Glucose 77 mg/dl Calcium Level 8.2 mg/dl Urine Color YELLOW Urine Appearance CLEAR Urine pH 5.0 Urine Specific [place] 1.019 Urine Protein NEG Urine Glucose (UA) NEG Urine Ketones NEG Urine Occult Blood NEG Urine Nitrite NEG Urine Bilirubin NEG Urine Urobilinogen NEG Urine Leukocyte Esterase NEG Assessment and Plan Ms. Mosley is a 76-year-old female t with locally invasive unresectable pancreatic cancer diagnosed December 2015 treated with gemcitabine and Abraxane. S/P some tumor ablation by a physician in [facility], S/ P radiation therapy to the lesion along with Xeloda. She presented with deconditioning, body aches, fall and GREGORY. Unfortunately spiked a fever of 38.5. Yesterday at 11 AM Possibly could be secondary to the cancer itself but as she has a port, Recent yesterday blood cultures one peripheral and one from the port and urine culture. Discharge was held for 24 hours GREGORY, resolved hold nephrotoxic IVF hydration Pancreatic cancer as above oncologist consult appreciated he recommended palliative/hospice consult pain control S/P fall at home PT/OT hip xray R/O fracture continue home meds DVT prophylaxis/heparin Coronary artery disease status post CABG/HTN Continue Plavix, Imdur, atenolol, hold losartan Neuropathy Continue gabapentin plan to discharge to rehab then to hospice DO NOT RESUSCITATE
[2016-11-29] MEDS ORDERED: BOOST BREEZE NUTRITION DRINK 1 BOX PO SCH (20:00)
[2016-11-29] MEDS: LOSARTAN POTASSIUM 25 MG TAB PO SCH (20:05)
[2016-11-29] MEDS: ACETAMINOPHEN 325 MG TAB PO PRN (21:20)
[2016-11-30 04:38] VITALS: BP 147/75; PULSE 66; TEMP 36.8; O2SAT 95
[2016-11-30 05:56] LABS: BASO % 0.2 %; BASO ABS # 0.01 K/uL (0-0.2); EOS % 0.9 %; IG% 0.2 %; LYMPH % 9.5 %; LYMPH ABS # 0.53 K/uL (1.2-3.4); MEAN CELL VOLUME 85.5 fL (80-100); MEAN CORPUSCULAR HGB CONC 31.5 g/dl (32-36); MEAN PLATELET VOLUME 10.7 fL (7.4-10.4); MONO % 9.2 %; PLATELET COUNT 107 K/uL (130-400); RED BLOOD COUNT 3.04 M/uL (4.2-5.4); WHITE BLOOD COUNT 5.55 K/uL (4.8-10.8)
[2016-11-30 06:35] LABS: BUN/CREATININE RATIO 21.3 (10-20); CALCIUM 8.2 mg/dl (8.5-10.1); CREATININE 0.71 mg/dl (0.60-1.20); MAGNESIUM 1.6 mg/dl (1.8-2.4); POTASSIUM 3.8 mmol/L (3.5-5.1)
[2016-11-30 06:37] LABS: ALB/GLOB RATIO 0.5 (0.9-2)
[2016-11-30 07:26] VITALS: BP 155/75; PULSE 69; TEMP 37; O2SAT 94
[2016-11-30] MEDS: XELODA~ORDER AWAITING ACTION SCH (07:43)
[2016-11-30] MEDS: HYDROmorphone HCL 2 MG TAB PO PRN (07:49)
[2016-11-30] MEDS: CHECK FENTANYL PATCH PLACEMENT SCH (07:50)
[2016-11-30] MEDS: GABAPENTIN 100 MG CAP PO SCH (07:51)
[2016-11-30] MEDS: METOCLOPRAMIDE HCL 10 MG TAB PO SCH ×2 (07:51→11:49)
[2016-11-30] MEDS: ISOSORBIDE MONONITRATE 60 MG TABCR PO SCH (07:51)
[2016-11-30] MEDS: CLOPIDOGREL BISULFATE 75 MG TAB PO SCH (07:51)
[2016-11-30] MEDS: SODIUM CHLORIDE 0.9% 1000ML 1,000 ML IV SCH (07:52)
[2016-11-30] MEDS: PANTOprazole SOD 40 MG TAB PO SCH (07:52)
[2016-11-30 08:18] LABS: ANISOCYTOSIS PRESENT; COMPLETE YES; ECHINOCYTES 1+; TOXIC GRANULATION 1+; VACUOLIZATION 1+
[2016-11-30] MEDS ORDERED: HYDR2TAB48 PO (08:55)
--- NOTE | 2016-11-30 09:00 | Discharge Instructions ---
Discharge Instructions Date of Service Nov 30, 2016. Admission Reason for Admission: Dehydration, Fall Discharge Discharge Diagnosis / Problem: GREGORY / metastasized cancer Discharge Goals Goal(s): Decrease discomfort Activity Recommendations Activity Limitations: resume your previous activity . Current Hospital Diet Patient's current hospital diet: Regular Diet Discharge Diet Recommended Diet: Regular Diet Pending Studies Studies pending at discharge: no Medical Emergencies . Who to Call and When: Medical Emergencies: If at any time you feel your situation is an emergency, please call 911 immediately. . Non-Emergent Contact Non-Emergency issues call your: Primary Care Provider . . "Provider Documentation" section prepared by Rosi Garcia. . VTE Core Measure Inpt VTE Proph given/why not?: Unfractionated heparin SQ
--- NOTE | 2016-11-30 10:32 | Discharge Summary ---
Discharge Summary Date of Service Nov 30, 2016. Discharge Summary Admission Date: Nov 26, 2016 at 03:31 Discharge Date: Nov 30, 2016 Discharge Disposition: Acute care facility Principal Diagnosis: Acute renal failure / weakness / fall Problems/Secondary Diagnoses: Pancreatic cancer / HTN / CAD / neuropathy Immunizations: Have You Had Influenza Vaccine: Unknown History of Tetanus Vaccine?: Unknown History of Pneumococcal: Unknown History of Hepatitis B Vaccine: Unknown Medication Reconciliation Continued Medications: Atenolol (Tenormin) 50 Mg Tab 1 TAB PO QAM, TAB 5 Refills Capecitabine (Xeloda) 500 Mg Tab 500 MG PO Q12H, TAB Clopidogrel (Plavix) 75 Mg Tab 75 MG PO DAILY, TAB Esomeprazole Magnesium (Nexium) 20 Mg Capcr 40 MG PO QAM, CAP Fentanyl (Duragesic) 100 Mcg/Hr Dis 100 MCG TD [id number] PRN for Pain Gabapentin (Neurontin) 100 Mg Cap 100 MG PO QAM, CAP Gabapentin (Neurontin) 100 Mg Cap 200 MG PO QPM, CAP Hydromorphone Hcl (Dilaudid) 2 Mg Tab 1 TAB PO QID PRN for Pain for 30 Days, #30 TAB (This prescription has been renewed) Isosorbide Mononitrate Ext Rel (Imdur Ext Rel) 30 Mg Ertab 60 MG PO QAM, TAB Losartan Potassium (Cozaar) 25 Mg Tab 1 TAB PO HS for 30 Days, TAB 5 Refills Metoclopramide (Reglan) 10 Mg Tab 10 MG PO QID, TAB administer 30 minutes before meals and at bedtime Nitroglycerin (Nitrostat) 0.4 Mg Tab 0.4 MG UT UD PRN for Chest Pain Ondansetron Hcl (Zofran) 8 Mg Tab 8 MG PO Q8 PRN for Nausea, TAB Prochlorperazine Maleate (Compazine) 10 Mg Tab 10 MG PO Q6H PRN for Nausea or Vomiting, TAB Discontinued Medications: Furosemide (Lasix) 20 Mg Tab 1 TAB PO DIRECTED for 90 Days, TAB 1 Refill Metronidazole (Topical) (Metrocream) 0.75 % Cre 1 APPLN TOP DAILY, #45 GM 3 Refills Naproxen (Aleve) 220 Mg Tab 220 MG PO BID PRN for Pain, TAB Omeprazole (Prilosec) 20 Mg Cap 20 MG PO DAILY Discharge Exam Review of Systems: Constitutional: + weakness, + fatigue, No fever, No chills, No sweats, No weight loss, No problem reported Eyes: No worsening of vision, No eye pain, No redness, No discharge, No diplopia, No problem reported ENT: No hearing loss, No unusual epistaxis, No nasal symptoms, No sore throat, No tinnitus, No dental problems, No trouble swallowing, No problem reported Respiratory: No cough, No sputum, No wheezing, No shortness of breath, No dyspnea on exertion, No dyspnea at rest, No hemoptysis, No problem reported Cardiovascular: No chest pain, No orthopnea, No PND, No edema, No claudication, No palpitations, No problem reported Abdomen: No pain, No nausea, No vomiting, No diarrhea, No constipation, No GI bleeding, No problem reported Musculoskeletal: + joint pain, No muscle pain, No swelling, No calf pain, No problem reported Neurologic: No memory loss, No paralysis, No weakness, No numbness/tingling , No vertigo, No balance problems, No problem reported Psychiatric: No depression symptoms, No anhedonism, No anxiety, No insomnia , No substance abuse, No problem reported Endocrine: No fatigue, No excessive thirst, No excessive urination, No problem reported Hematologic / Lymphatic: No abnormal bleeding/bruising, No clotting problems , No swollen lymph nodes, No night sweats, No problem reported Integumentary: No rash, No itch, No new/changing skin lesions, No color change, No bleeding, No problem reported Physical Exam: General Appearance: WD/WN, no apparent distress Eyes: normal inspection, EOMI ENT: normal ENT inspection, hearing grossly normal Neck: supple Respiratory/Chest: chest non-tender, lungs clear, normal breath sounds, no respiratory distress, no accessory muscle use Cardiovascular: regular rate, rhythm, no edema, no gallop, no JVD, no murmur , normal peripheral pulses Abdomen / GI: normal bowel sounds, non tender, soft, no organomegaly, no pulsatile mass, occult blood negative Extremities: normal inspection, no calf tenderness, normal capillary refill , no pedal edema 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 Mosley is a 76-year-old female t with locally invasive unresectable pancreatic cancer diagnosed December 2015 treated with gemcitabine and Abraxane. S/P some tumor ablation by a physician in [facility], S/ P radiation therapy to the lesion along with Xeloda. She presented with deconditioning, body aches, fall and GREGORY. Admitted to medical floor, had an upper vaccine, losartan and Lasix were stopped She was started and generous IV fluid hydration, renal function was followed daily, improve slowly. Now her renal function is back to baseline, losartan was restarted oncologist consult appreciated he recommended palliative/hospice consult pain control for her Coronary artery disease status post CABG/HTN we Continued Plavix, Imdur, atenolol, She was going to be discharged 2 days ago, but unfortunately spiked a fever of 38.5. Possibly could be secondary to the cancer itself but as she has a port, discharge was held for 48 hours 2 blood cultures one peripheral and one from the port and urine culture were all sent. So far all cultures are negative. Fever was in an isolated incident that did not happen again She is cleared for discharge and part of her discharge instructions is to follow -up on culture results in 5 days Total Time Spent: Greater than 30 minutes This includes examination of the patient, discharge planning, medication reconciliation, and communication with other providers. Discharge Instructions Please refer to the electronic Patient Visit Report (Discharge Instructions) for additional information. Follow-Up follow up on blood cultures and urine culture results obtained 11/28
[2016-11-30 11:26] VITALS: BP 126/69; PULSE 74; TEMP 37.4; O2SAT 92
[2016-11-30 11:40] VITALS: BP 126/69; PULSE 74; TEMP 37.4; O2SAT 92
--- NOTE | 2016-11-30 12:51 | Hematology/Oncology Prog Note ---
Hematology/Onc Progress Note Date of Service Nov 30, 2016. Diagnoses Locally advanced pancreatic carcinoma Declining performance status Medications Medications Administered Medications (Trade) Dose Ordered Sig/Serina Route Start Time Stop Time Status Last Admin Dose Admin Sodium Chloride 500 ml @ 999 mls/hr Q31M STAT IV 11/26/16 02:19 11/26/16 02:49 DC 11/26/16 02:19 999 MLS/HR Sodium Chloride 1,000 ml @ 200 mls/hr Q5H STAT IV 11/26/16 02:19 11/26/16 04:52 DC 11/26/16 03:04 200 MLS/HR Acetaminophen (Tylenol Tab) 650 mg Q4H PRN PO 11/26/16 03:30 12/26/16 03:29 11/29/16 21:20 650 MG Ondansetron HCl (Zofran Inj) 4 mg Q6H PRN IV 11/26/16 03:30 12/26/16 03:29 11/28/16 18:02 4 MG Atenolol (Tenormin Tab) 50 mg QAM PO 11/26/16 08:00 12/26/16 08:59 11/30/16 07:51 50 MG Clopidogrel Bisulfate (plAVix TAB) 75 mg DAILY PO 11/26/16 08:00 12/26/16 08:59 11/30/16 07:51 75 MG Gabapentin (Neurontin Cap) 100 mg QAM PO 11/26/16 08:00 12/26/16 08:59 11/30/16 07:51 100 MG Gabapentin (Neurontin Cap) 200 mg QPM PO 11/26/16 21:00 12/26/16 20:59 11/29/16 20:05 200 MG Isosorbide Mononitrate (Imdur Ext Rel Tab) 60 mg QAM PO 11/26/16 08:00 12/26/16 08:59 11/30/16 07:51 60 MG Losartan Potassium (coZAAR TAB) 25 mg HS PO 11/26/16 21:00 12/26/16 20:59 11/29/16 20:05 25 MG Metoclopramide HCl (Reglan Tab) 10 mg QID PO 11/26/16 08:00 12/26/16 08:59 11/30/16 11:49 10 MG Pantoprazole Sodium (Protonix Tab) 40 mg QAM PO 11/26/16 08:00 12/26/16 08:59 11/30/16 07:52 40 MG Hydromorphone HCl (Dilaudid Inj) 0.5 mg NOW STAT IV 11/26/16 03:31 11/26/16 03:44 DC 11/26/16 04:08 0.5 MG Hydromorphone HCl (Dilaudid Inj) 0.5 mg Q6H PRN IV 11/26/16 03:45 11/26/16 19:56 DC 11/26/16 19:50 0.5 MG Fentanyl (Duragesic Patch) 100 mcg Q3D TD 11/26/16 08:00 12/10/16 07:59 11/29/16 07:22 100 MCG Miscellaneous (Fentanyl Patch Remove & Waste) 1 ea Q3D N/A 11/26/16 07:59 12/26/16 07:58 11/29/16 07:11 1 EA Miscellaneous Information (Check Fentanyl Patch Placement) 1 ea QS N/A 11/26/16 08:00 12/26/16 07:59 11/30/16 07:50 1 EA Heparin Sodium (Porcine) (Heparin 100 Unit/ml 5ml Flush) 5 ml PRN PRN IV 11/26/16 06:00 12/26/16 05:59 11/30/16 12:10 5 ML Sodium Chloride 1,000 ml @ 75 mls/hr [id number] IV 11/26/16 12:00 12/26/16 11:59 11/30/16 07:52 75 MLS/HR Hydromorphone HCl (Dilaudid Inj) 0.5 mg Q2H PRN IV 11/26/16 20:00 11/28/16 12:59 DC 11/28/16 11:07 0.5 MG Enteral Nutritional Formula (Boost Breeze Nutritional Drink) 1 box BID PO 11/28/16 20:00 11/29/16 15:06 DC 11/29/16 07:09 1 BOX Hydromorphone HCl (Dilaudid Tab) 1 mg Q4H PRN PO 11/28/16 13:00 12/12/16 12:59 11/30/16 07:49 1 MG Potassium Chloride (Klor-Con Tab) 40 meq NOW ONCE PO 11/29/16 16:00 11/29/16 16:01 DC 11/29/16 16:05 40 MEQ Subjective Continues to be very weak. Mentation seems slow. She denies any significant pain at this time. Review of Systems: Constitutional: Negative for night sweats, or fever Eyes: Negative for event change of vision ENT: Negative for epistaxis, nasal discharge, sore throat, or deafness Cardiovascular: Negative for chest pain, palpitations, dizziness, diaphoresis Respiratory: Negative for new shortness of breath,hemoptysis, or purulent cough Gastrointestinal: Negative for diarrhea, hematemesis, melena, nausea, vomiting , or dyspepsia Integumentary (skin): Negative for rash or jaundice discoloration Neurological: Negative for weakness, seizure activity, headache, or dizziness Lymphatic/Hematologic: Negative for petechiae, bleeding or new adenopathy Musculoskeletal: Negative for new joint or back pain Allergic/Immunologic: Negative for unusual rash or pruritis. Vital Signs Vital Signs Past 12 Hours Date Time Temp Pulse Resp B/P (MAP) Pulse Ox O2 Delivery O2 Flow Rate FiO2 11/30/16 11:40 37.4 74 18 92 Room Air 11/30/16 11:26 37.4 74 18 126/69 (88) 92 Room Air 11/30/16 07:26 37.0 69 20 155/75 (101) 94 Room Air 11/30/16 07:15 Room Air 11/30/16 04:38 36.8 66 17 147/75 (99) 95 Room Air Physical Exam Constitutional: vitals are stable. Eyes: Eyes are SHELBIE EOMI without conjuctival erythema or icterus. ENT: External examination was negative for masses. Neck: Negative for masses or palpable thyromegaly Respiratory: Lung sounds were generally clear bilaterally Cardiovascular: Heart was RRR without significant murmur, gallops aoe rubs Gastrointestinal: No palpable hepatic or splenomegaly. The abdomen was soft with normal bowel sounds. Lymphatic system: there was no palpable peripheral lymphadenopathy Musculoskeletal System: The musculoskeletal system seemed concordant with age. Skin: The skin was negative for jaundice. Neurologic exam: The exam was negative for any focal findings. Deep tendon reflexes were equal and symmetrical. Psychiatric exam: Was essentially negative with normal mood and effect. Breast exam: Not done Extremities: Negative for significant edema Laboratory Last 24 Hours Test 11/30/16 05:35 White Blood Count 5.55 K/uL Red Blood Count 3.04 M/uL Hemoglobin 8.2 g/dL Hematocrit 26.0 % Mean Corpuscular Volume 85.5 fL Mean Corpuscular Hemoglobin 27.0 pg Mean Corpuscular Hemoglobin Concent 31.5 g/dl Platelet Count 107 K/uL Mean Platelet Volume 10.7 fL Neutrophils (%) (Auto) 80.0 % Lymphocytes (%) (Auto) 9.5 % Monocytes (%) (Auto) 9.2 % Eosinophils (%) (Auto) 0.9 % Basophils (%) (Auto) 0.2 % Neutrophils # (Auto) 4.44 K/uL Lymphocytes # (Auto) 0.53 K/uL Monocytes # (Auto) 0.51 K/uL Eosinophils # (Auto) 0.05 K/uL Basophils # (Auto) 0.01 K/uL RDW Standard Deviation 61.2 fL RDW Coefficient of Variation 19.3 % Immature Granulocyte % (Auto) 0.2 % Immature Granulocyte # (Auto) 0.01 K/uL Toxic Granulation 1+ Toxic Vacuolation 1+ Anisocytosis PRESENT Echinocytes 1+ Sodium Level 139 mmol/L Potassium Level 3.8 mmol/L Chloride Level 111 mmol/L Carbon Dioxide Level 21 mmol/L Anion Gap 7.0 mmol/L Blood Urea Nitrogen 15 mg/dl Creatinine 0.71 mg/dl Est Creatinine Clear Calc Drug Dose 53.0 ml/min Estimated GFR () 95.2 Estimated GFR (Non- 82.2 BUN/Creatinine Ratio 21.3 Random Glucose 90 mg/dl Calcium Level 8.2 mg/dl Magnesium Level 1.6 mg/dl Total Bilirubin 0.5 mg/dl Aspartate Amino Transf (AST/SGOT) 13 U/L Alanine Aminotransferase (ALT/SGPT) 9 U/L Alkaline Phosphatase 112 U/L Total Protein 5.2 gm/dl Albumin 1.7 gm/dl Globulin 3.5 gm/dl Albumin/Globulin Ratio 0.5 Assessment & Plan Locally advanced pancreatic carcinoma status post therapy and now declining performance status. No more systemic therapy is planned. Plans were made hospice placement. Her son who I spoke with in the hallway understands. For now we will sign off. I appreciate everybody's help. She will have a follow- up in our clinic if she feels up to it. Please do not hesitate to reconsult if needed
== END 2016-11-30 13:17 | DRG 682 ==
LOC: EDBD 00:14 → C.EDA 00:16 → C.4E 03:31 → EDBEDREQ 03:40 → EDBEDREQSVC 03:43 → ENRESERV 03:58
PROVIDERS: ADMIT Family Medicine; ATTEND Internal Medicine
DX: N17.9 Acute kidney failure, unspecified (principal); E43 Unspecified severe protein-calorie malnutrition; C25.9 Malignant neoplasm of pancreas, unspecified; D64.81 Anemia due to antineoplastic chemotherapy; E86.0 Dehydration; Z51.5 Encounter for palliative care; R53.1 Weakness; S00.11XA Contusion of right eyelid and periocular area, initial encounter; R50.9 Fever, unspecified; G62.9 Polyneuropathy, unspecified; I11.9 Hypertensive heart disease without heart failure; I25.119 Atherosclerotic heart disease of native coronary artery with unspecified angina pectoris; Z51.81 Encounter for therapeutic drug level monitoring; Z79.899 Other long term (current) drug therapy; Z66 Do not resuscitate; Z95.1 Presence of aortocoronary bypass graft; W18.39XA Other fall on same level, initial encounter; Y93.01 Activity, walking, marching and hiking; Y92.009 Unspecified place in unspecified non-institutional (private) residence as the place of occurrence of the external cause; Y99.8 Other external cause status

== ENCOUNTER → 2016-12-04 | Outpatient (CLI) | payer OTHER, BC ==
[~2016-12-04] MED LIST changes: -CALC500C3 PO; -CLBPO15 TOP; -FURO-85 PO; -METR0.754 TOP; -NAPR1TAB9 PO
[2016-12-04 10:35] LABS: BLOOD UREA NITROGEN 16 mg/dl (7-18); BUN/CREATININE RATIO 19.8 (10-20); CALCIUM 9.1 mg/dl (8.5-10.1); CARBON DIOXIDE 21 mmol/L (21-32); CHLORIDE 108 mmol/L (98-107); GLUCOSE 94 mg/dl (70-99); POTASSIUM 3.5 mmol/L (3.5-5.1); SODIUM 139 mmol/L (136-145)
== END ==
LOC: C.LABFOXAE 09:44
PROVIDERS: ATTEND Internal Medicine
DX: R10.84 Generalized abdominal pain (principal)